=== PATIENT | male | born 1940 | race Caucasian/White ===

== ENCOUNTER → 2016-12-09 | Outpatient (CLI) | payer OTHER ==
[~2016-12-09] MED LIST: ATEN50TA2 PO; ATOR1TAB19 PO; CONRAY-43 43% 50ML VIAL (Q9960) As Ordered ONE; HYDR12.55 PO; LIDOCAINE 1% MDV 20ML VIAL As Ordered ONE; OMEP20CA3 PO; TRIAMCINOLONE ACETONIDE SUSP 40 MG/ML VIAL (J3301) As Ordered ONE; WARF-23 PO
--- NOTE | 2016-12-09 16:55 | REP ---
RIGHT HIP INJECTION: The procedure was performed under the direct supervision of Dr. Bob. The risks and benefits of the procedure were explained to the patient and informed consent was obtained. The right femoral neck was localized using fluoroscopic guidance. The skin was prepped and draped in a sterile fashion. 1% Lidocaine was used as a local anesthetic. Using fluoroscopic guidance a 22-gauge spinal needle was inserted and advanced to the femoral neck. 0.5 mL of Conray-43 was injected to verify placement. 6 mL of a solution containing 5 mL of 1% lidocaine and 1 mL of Kenalog 40 mg was injected. The needle was then removed. The patient tolerated the procedure well and there were no immediate complications. 4 seconds of fluoroscopic time was utilized for this procedure. Reviewed by KATHERINE Cheung 12/10/2016 10:07 AEdited and Signed by [place]oacano Bob MD 12/10/2016 10:41 A
== END ==
LOC: M RADPRO 08:58
PROVIDERS: ATTEND Orthopaedic Surgery
DX: M16.11 Unilateral primary osteoarthritis, right hip (principal)
CPT/HCPCS: 20610; 77002; J3301; Q9960

== ENCOUNTER 2017-03-17 13:01 | Day surgery (SDC) | payer MEDICARE ==
[~2017-03-17] VITALS: Ht 180.3 cm; Wt 111.0 kg
[~2017-03-17 13:01] MED LIST changes: -CONRAY-43 43% 50ML VIAL (Q9960) As Ordered ONE; -LIDOCAINE 1% MDV 20ML VIAL As Ordered ONE; -TRIAMCINOLONE ACETONIDE SUSP 40 MG/ML VIAL (J3301) As Ordered ONE
[2017-03-17] MEDS ORDERED: JANT5TAB PO (13:29)
[2017-03-17] MEDS ORDERED: NS 1,000 ML IV SCH (14:15)
[2017-03-17] MEDS ORDERED: HYDR25TAB PO (14:23)
[2017-03-17] MEDS ORDERED: TYLE500T78 PO (14:39)
[2017-03-17] MEDS ORDERED: LIDOCAINE 2% INJ 100 MG/5 ML SDV (FOR ANES.) As Ordered ONE (16:52)
[2017-03-17] MEDS ORDERED: ONDANSETRON 4MG/2ML VIAL (J2405) As Ordered ONE (16:52)
[2017-03-17] MEDS ORDERED: SUCCINYLCHOLINE 100 MG/5 ML SYRINGE (J0330) As Ordered ONE (16:52)
[2017-03-17] MEDS ORDERED: MIDAZOLAM INJ 2 MG/2 ML VIAL (J2250) As Ordered ONE (16:52)
[2017-03-17] MEDS ORDERED: PROPOFOL 200 MG/20 ML VIAL As Ordered ONE (16:52)
[2017-03-17] MEDS ORDERED: fentaNYL 100 MCG/2 ML INJECTION (J3010) As Ordered ONE (16:52)
[2017-03-17] MEDS ORDERED: dexameTHASONE 4 MG/ML 1ML VIAL (J1100) As Ordered ONE (16:52)
[2017-03-17] MEDS ORDERED: LR 1,000 ML IV SCH (18:00)
[2017-03-17] MEDS ORDERED: fentaNYL 100 MCG/2 ML INJECTION (J3010) IV PRN (18:00)
[2017-03-17] MEDS ORDERED: ONDANSETRON 4MG/2ML VIAL (J2405) IV PRN (18:00)
[2017-03-17 19:30] VITALS: BP 173/86
[2017-03-17 20:00] VITALS: BP 180/88
[2017-03-17 20:45] LABS: BLOOD UREA NITROGEN 19 MG/DL (7-18); CREATININE FOR GFR 1.05 MG/DL (0.70-1.30); GLOMERULAR FILTRATION RATE > 60.0 (>42)
[2017-03-17 21:00] VITALS: BP 173/84; O2SAT 97
[2017-03-17] MEDS ORDERED: ISOVUE-370 76% 100ML VIAL (Q9967) As Ordered ONE (21:46)
[2017-03-17 22:00] VITALS: BP 172/87
[2017-03-17] MEDS: NS 1,000 ML IV SCH (22:26)
--- NOTE | 2017-03-17 22:50 | REPUSA ---
CT of the chest Clinical statement: Chest pain, possible esophageal tear. Technique: Multiple axial CT images were obtained from the thoracic inlet through the upper abdomen a fter a bolus administration of nonionic intravenous contrast. Coronal and sagittal reconstructions we re also obtained. No comparison is available. Findings: The pulmonary arteries are well-opacified with contrast, with no intraluminal filling defec ts to suggest embolism. The thoracic aorta is unremarkable. Thyroid gland is within normal limits. Th ere is no thoracic lymphadenopathy. There are no pericardial or pleural effusions. The lungs are vickie r. Limited imaging of the upper abdomen is unremarkable.. Esophagus appears grossly unremarkable. The re is a small hiatal hernia. There are no suspicious osseous lesions. Impression: 1. No evidence of pulmonary embolism. 2. Patchy atelectasis in the lung bases bilaterally. No other acute infiltrates. 3 Small hiatal hernia. The esophagus otherwise appears unremarkable. If there is further clinical con cern, esophagram or endoscopy could be performed.
[2017-03-17 23:00] VITALS: BP 144/69
[2017-03-17] MEDS ORDERED: KETOROLAC 30 MG/ML VIAL (J1885) IV PRN (23:00)
[2017-03-17] MEDS: PIPERACILLIN/TAZOBACTAM SOD 3.375 GM in D5W MINI-BAG PLUS 50 ML IV SCH (23:16)
[2017-03-18] VITALS: BP 168/74
[2017-03-18 00:15] LABS: BASO % 0.1 % (0.0-1.0); EOS # 0.1 K/mm3 (0.0-0.50); EOS % 0.7 % (0.0-3.0); LARGE UNSTAINED CELL # 0.1 K/mm3 (0.0-0.4); LARGE UNSTAINED CELL % 0.5 % (0.0-4.0); LYMPH # 0.9 K/mm3 (1.5-4.5); LYMPH % 7.4 % (24.0-44.0); MEAN CORPUSCULAR HEMOGLOBIN 29.3 pg (27.0-33.0); MEAN CORPUSCULAR HGB CONC 33.5 g/dl (32.0-36.5); MEAN CORPUSCULAR VOLUME 87.2 fl (80.0-96.0); MONO # 0.2 K/mm3 (0.0-0.8); NEUTROPHILS % 89.4 % (36.0-66.0); PLATELET COUNT, AUTOMATED 301 k/mm3 (150-450); RED CELL DISTRIBUTION WIDTH 14.3 % (11.5-14.5); WHITE BLOOD COUNT 11.2 K/mm3 (4.0-10.0)
[2017-03-18 00:44] LABS: ALBUMIN 3.3 GM/DL (3.2-5.2); ALBUMIN/GLOBULIN RATIO 0.75 (1.00-1.93); ALKALINE PHOSPHATASE 59 U/L (45-117); ALT/SGPT 14 U/L (12-78); ANION GAP 7 MEQ/L (8-16); AST/SGOT 20 U/L (15-37); BLOOD UREA NITROGEN 19 MG/DL (7-18); CALCIUM LEVEL 8.6 MG/DL (8.8-10.2); CARBON DIOXIDE LEVEL 27 MEQ/L (21-32); CHLORIDE LEVEL 104 MEQ/L (98-107); CHOLESTEROL LEVEL 125 MG/DL (< 200); CREATININE FOR GFR 1.03 MG/DL (0.70-1.30); GLOMERULAR FILTRATION RATE > 60.0 (>42); GLUCOSE, FASTING 120 MG/DL (83-110); PHOSPHORUS LEVEL 2.1 MG/DL (2.5-4.9); POTASSIUM SERUM 4.1 MEQ/L (3.5-5.1); SODIUM LEVEL 138 MEQ/L (136-145); TOTAL PROTEIN 7.7 GM/DL (6.4-8.2); TRIGLYCERIDES LEVEL 65 MG/DL (<150)
[2017-03-18 04:00] VITALS: BP 153/73
[2017-03-18] MEDS: PIPERACILLIN/TAZOBACTAM SOD 3.375 GM in D5W MINI-BAG PLUS 50 ML IV SCH ×2 (05:59→11:09)
[2017-03-18 06:38] LABS: BASO % 0.1 % (0.0-1.0); EOS % 0.2 % (0.0-3.0); LARGE UNSTAINED CELL # 0.1 K/mm3 (0.0-0.4); LARGE UNSTAINED CELL % 0.5 % (0.0-4.0); LYMPH # 1.2 K/mm3 (1.5-4.5); LYMPH % 11.3 % (24.0-44.0); MEAN CORPUSCULAR HEMOGLOBIN 29.6 pg (27.0-33.0); MEAN CORPUSCULAR HGB CONC 33.7 g/dl (32.0-36.5); MONO # 0.5 K/mm3 (0.0-0.8); MONO % 4.6 % (0.0-5.0); NEUTROPHILS # 8.7 K/mm3 (1.8-7.7); NEUTROPHILS % 83.3 % (36.0-66.0); PLATELET COUNT, AUTOMATED 274 k/mm3 (150-450); RED CELL DISTRIBUTION WIDTH 14.2 % (11.5-14.5); WHITE BLOOD COUNT 10.4 K/mm3 (4.0-10.0)
--- NOTE | 2017-03-18 08:20 | ROOR ---
Patient Name: Soham Mario Procedure Date: 03/17/2017 3:09 PM Date of : 1940 Age: 76 Room: Main OR Gender: Male Note Status: Finalized Procedure: Upper GI endoscopy + Snare Removal of Foreign Body. Indications: Foreign body in the esophagus Providers: Roney Braga MD Referring MD: Cristino Márquez MD Requesting Provider: Medicines: General Anesthesia Complications: No immediate complications. Procedure: Pre-Anesthesia Assessment: - The heart rate, respiratory rate, oxygen saturations, blood pressure, adequacy of pulmonary ventilation, and response to care were monitored throughout the procedure. The Endoscope was introduced through the mouth, and advanced to the second part of duodenum. The upper GI endoscopy was accomplished without difficulty. The patient tolerated the procedure well. Findings: Food was found in the entire esophagus. Removal was accomplished with a snare. A non-bleeding mucosal tear of uncertain etiology was found in the lower third of the esophagus. No other significant abnormalities were identified in a careful examination of the stomach. The exam of the duodenum was otherwise normal. Impression: - Food was found in the esophagus. Removal was successful. - Mucosal tear in the lower third of the esophagus. - The examination was otherwise normal. Recommendation: - Patient has a contact number available for emergencies. The signs and symptoms of potential delayed complications were discussed with the patient. Return to normal activities tomorrow. Written discharge instructions were provided to the patient. - High fiber diet. - Observe patient in same day observation unit. - The findings and recommendations were discussed with the patient's family. Roney Braga MD Roney Braga MD 03/18/2017 8:20:22 AM This report has been signed electronically. Number of Addenda: 0 Note Initiated On: 03/17/2017 3:09 PM Estimated Blood Loss: Estimated blood loss: none.
--- NOTE | 2017-03-18 09:45 | CR ---
DATE OF CONSULTATION: The patient is seen at the request of Dr. Roney Braga for possible esophageal tear and rupture. 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 It got stuck in his distal esophagus where he was not able to dislodge it. All night he was retching. He tried to clear it with water, which came right back up. He tried some ice cream and that did not work either. He complained of pain from his retching in his upper abdomen and on both sides of his ribs. Since clearing the obstruction, he has not had any pain. He has not had any fevers, chills or sweats. He has not complained of shortness of breath. He has had this problem for a very long period of time and knows that both chicken and beef steak does not go down well. He has even had esophageal dilations in the past. He usually avoids those foods. He does not have any dysphagia with swallowing liquids or ground beef. He underwent a CT scan of his chest, which I will discuss below, which showed the possibility of some air within the esophageal wall. PAST MEDICAL HISTORY: Coronary artery disease. Chronic back problems for which he has been on disability since the mid . Hypertension. He is on Coumadin for an unknown reason. PAST SURGICAL HISTORY: The above coronary artery bypass procedure. Appendectomy in the remote past. Shoulder surgery. MEDICATIONS AT HOME: - atenolol 50 mg daily - atorvastatin 10 mg nightly - omeprazole 20 mg daily - warfarin 5 mg daily - hydrochlorothiazide 25 mg daily - Tylenol as needed pain. ALLERGIES: None. TRAVEL HISTORY: He has been to [place] once and took a cruise to [place]. No travel history to the [facility] or to the south portion of the [facility]. EXPOSURES: No dogs, cats or birds at home at the present time. No exposure to tuberculosis. 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 HABITS: Stopped smoking 35 years ago. He smoked less than a pack a day. He only has occasional alcohol intake. No illicit drugs. FAMILY HISTORY: Mother probably of lung cancer and his father of a myocardial infarction in his late 40s. REVIEW OF SYSTEMS: CONSTITUTIONAL: She history of present illness. Without fever, chills, sweats or night sweats, and particularly none in the last 48 hours. EYES: Wears glasses without diplopia. Without transient monocular blindness, without apparent jaundice. NOSE: Without epistaxis. MOUTH: Has full uppers and he has only a few remaining teeth in the lower jaw. RESPIRATORY: See history of present illness. Without prior shortness of breath, without cough or sputum production. Without wheezing. CARDIAC: Without orthopnea, or paroxysmal nocturnal dyspnea. He does not have leg edema but does have ankle edema secondary to orthopedic problems for which he wears a brace, recently acquired. Without intermittent claudication or prior myocardial infarctions. He does have prior coronary artery disease status post triple coronary artery bypass graft procedure. GI: See history of present illness. Without diarrhea or constipation. While he has been retching, he has not actually felt nauseous and he has not actually vomited. Without prior abdominal pain but with the above history of most likely esophageal stricture. : Without dysuria, hematuria. He has not had renal stones. NEUROLOGIC: Without paralysis or seizures. ENDOCRINE: Without diabetes and without thyroid disease. LYMPHATICS: Without lumps or bumps of the neck, axilla or groin. PSYCHIATRIC: Without pathologic psychoses, depression or anxieties. INVESTIGATIONS: His white count yesterday evening was 11.2 and is 10.4 today. Hemoglobin and hematocrit are 13.4 and 39.8 with a platelet count of 274 and a differential which shows 83% neutrophils, 11% lymphocytes, 4% monocytes. There are no immature forms or toxic granulations. Electrolytes are normal with a BUN and creatinine of 19 and 1.03. Calcium 8.6 with an AST and ALT of 20 and 14 respectively and an albumin of 3.3. Alkaline phosphatase is 59. He had a chest CT done late last night and showed a suspicion of air outside the esophageal lumen within the wall of the esophagus. There is some thickening around the distal esophagus just as it enters the stomach at the gastroesophageal junction. There is no pleural effusion. He has some atelectasis and some scattered fibrotic changes in the lung. There is no pleural effusion. There is no mediastinal lymphadenopathy and I see no rib fractures. He has stood the test of time over the last few hours and has not developed any pain. He is breathing well and there is neither any mediastinal pain or chest pain consistent with an inflammatory pleural effusion. I did suggest that we obtain a barium swallow today with barium and not with Gastrografin to get the most sensitive reading. I think that he probably does have a small tear in the esophageal mucosa, which will heal spontaneously. Until we get the esophagram, he will remain nothing by mouth. If there is no gross perforation, I recommend that he stays on a soft nearly pureed diet for the next few days. He certainly does not need to be brought to the operating room at this point in time.
[2017-03-18] MEDS: NS 1,000 ML IV SCH (11:09)
[2017-03-18] MEDS ORDERED: PANTOPRAZOLE 40MG INJ (PROTONIX) (C9113) IV SCH (12:00)
[2017-03-18] MEDS ORDERED: E-Z-PAQUE 96% w/w SUSP 176GM BTL As Ordered ONE ×3 (12:59→13:11)
[2017-03-18] MEDS ORDERED: GASTROGRAFIN SOLUTION 30ML (Q9963) As Ordered ONE ×2 (12:59→13:03)
[2017-03-18] MEDS ORDERED: E-Z-GAS II EFFERVESCENT PACKET (SODIUM BICARB./CITRIC ACID/SIMETHICONE) As Ordered ONE (12:59)
[2017-03-18] MEDS ORDERED: OMEP40CA2 PO (15:06)
--- NOTE | 2017-03-18 15:06 | CR ---
DATE OF CONSULTATION: 03/18/2017 The patient was admitted to short stay on 03/17/2017. This is a 76-year-old white male who presented to [facility] as a transfer form [place] for an esophageal food impaction. The patient has multiple medical problems including chronic reflux, hypertension, and hypercholesterolemia, and has had coronary artery bypass graft in 2002 and had back surgery in 2002. The patient presented after 24 hours of eating a large amount of steak the night before and had multiple episodes of retching the night before. He has no fevers, night sweats or shaking chills. He is unable to swallow his own secretions. The patient was treated with glucagon in [place]. He had a chest x-ray and were apparently normal. His was transferred down here for endoscopic intervention for the esophageal food impaction. PAST MEDICAL HISTORY: 1. Reflux. 2. Coronary bypass graft in 2002. 3. Hypertension. 4. Hypercholesterolemia. MEDICATIONS: Include: - omeprazole 20 mg a day - warfarin 5 mg a day - atenolol 50 mg a day - hydrochlorothiazide 50 mg a day - atorvastatin 10 mg a day ALLERGIES: No known declared allergies. FAMILY HISTORY: Father and mother are noncontributory to the above problem. SOCIAL HISTORY: Cigarettes. The patient is a former smoker. Alcohol occasionally. REVIEW OF SYSTEMS: Noncontributory to the above problem. PHYSICAL EXAMINATION: Well-developed, well-nourished white male in some distress, unable swallow his own secretions. Chest is clear to auscultation and percussion. Cardiovascular exam regular rhythm. No murmurs or gallops. Normal physiological split S1 and S2. Abdomen soft, nontender. No masses. Negative rebound. No hepatosplenomegaly. Bowel sounds positive. Extremities no cyanosis, clubbing or edema. ANALYSIS: Esophageal food impaction. At the present time the patient has been put on observation status. We were able to remove the large amount of meat using a , however, upon observation of the distal esophagus, there appeared to be a mucosal tear. We were uncomfortable sending the patient home. We will need to be sure that the patient did not have a complete torn through perforation and no free air in the chest. We ordered a CT of the chest and the CT of the chest did not show any evidence of any free air. Dr. Lopez reviewed the films in the wall of the distal esophagus. The patient was started on Zosyn IV as a precaution IV every 6 hours and will be observed overnight. The patient will have an esophagram today which shows evidence for a probable mucosal tear but no extravasation of contents. Plan will be to send the patient home either today or in the morning, soft diet, with Dr. Lopez for further evaluation and/or treatment at this point.
--- NOTE | 2017-03-19 07:29 | REP ---
ESOPHAGRAM: The procedure was performed under the direct supervision of Dr. Bauer. The images were reviewed with Dr. Bauer. A single view PA chest x-ray is submitted as a youth nutritional monitor film. The patient is status post median sternotomy. There is mild cardiomegaly. There is no active disease. Liquid barium was given in the erect and prone oblique positions. The oral and pharyngeal stages of deglutition are unremarkable. During esophageal transport, there are tertiary waves demonstrated. There is a hiatal hernia present. Gastroesophageal reflux is not demonstrated on this examination. There is a barium collection in the distal esophagus extending into the mucosa which is compatible with the endoscopic findings of a mucosal tear. There is no extravasation identified. IMPRESSION: 1. There is a barium collection in the distal esophagus extending into the mucosa which is compatible with the endoscopic findings of a mucosal tear. There is no evidence of extravasation. 2. There are tertiary waves identified. 3. There is a hiatal hernia present. 2 minutes and 6 seconds of fluoroscopy time was utilized for this procedure. Reviewed by KATHERINE Cheung 03/21/2017 07:03 PEdited and Signed by Jimbo Bauer MD 03/22/2017 03:56 P
== END 2017-03-18 15:25 | disposition home or self-care (01) ==
LOC: M ED 13:51 → M SDC 15:28 → M MS5PR 18:40 → M SDC 03-18 15:25
PROVIDERS: ATTEND Internal Medicine Gastroenterology
DX: T18.128A Food in esophagus causing other injury, initial encounter (principal); S27.818A Other injury of esophagus (thoracic part), initial encounter; I10 Essential (primary) hypertension; E78.5 Hyperlipidemia, unspecified; I25.10 Atherosclerotic heart disease of native coronary artery without angina pectoris; J44.9 Chronic obstructive pulmonary disease, unspecified; K21.9 Gastro-esophageal reflux disease without esophagitis; Z79.899 Other long term (current) drug therapy; Z79.01 Long term (current) use of anticoagulants; Z87.891 Personal history of nicotine dependence
CPT/HCPCS: 36415; 43247; 71260; 74220; 80053; 82465; 82550; 82565; 83615; 84100; 84478; 84520; 85025; 88300; 96374; 96375; 99284; C9113; J0330; J1100; J1885; J2250; J2405; J2543; J3010; Q9963; Q9967

== ENCOUNTER 2017-11-11 05:32 | Inpatient (IN) | payer MEDICARE ==
[2017-11-11] MEDS ORDERED: dexameTHASONE 10 MG/1 ML VIAL PRES.FREE (J1100) (05:33)
[2017-11-11] MEDS ORDERED: ROPIvacaine 0.5% 30 ML INJECTION (J2795 PER 1MG) (05:33)
[2017-11-11] MEDS ORDERED: LIDOCAINE 1% MDV 20ML VIAL (05:33)
[2017-11-11] MEDS ORDERED: LIDOCAINE 1% MDV 20ML VIAL SQ (05:45)
[2017-11-11] MEDS: LR 1,000 ML IV ×4 (05:45→22:45)
[2017-11-11 06:15] LABS: INR 1.16
[2017-11-11] MEDS ORDERED: fentaNYL 100 MCG/2 ML INJECTION (J3010) As Ordered ×2 (07:15→07:21)
[2017-11-11] MEDS ORDERED: MIDAZOLAM INJ 2 MG/2 ML VIAL (J2250) As Ordered ×2 (07:15→07:21)
[2017-11-11] MEDS ORDERED: PROPOFOL 200 MG/20 ML VIAL As Ordered (07:21)
[2017-11-11] MEDS ORDERED: LIDOCAINE 2% INJ 100 MG/5 ML SDV (FOR ANES.) As Ordered (07:21)
[2017-11-11] MEDS ORDERED: ROCURONIUM BROMIDE 50 MG/5 ML VIAL As Ordered (07:21)
[2017-11-11] MEDS: MIDAZOLAM INJ 2 MG/2 ML VIAL (J2250) IV (07:28)
[2017-11-11] MEDS: fentaNYL 100 MCG/2 ML INJECTION (J3010) IV (07:28)
[2017-11-11] MEDS ORDERED: PHENYLephrine HCL 500 MCG/5 ML (100MCG/ML) SYRINGE (J2370) As Ordered (08:10)
[2017-11-11] MEDS ORDERED: ePHEDrine SULFATE 25 MG/5 ML(5MG/ML) SYRINGE As Ordered ×2 (08:10→08:32)
[2017-11-11] MEDS ORDERED: dexameTHASONE 4 MG/ML 1ML VIAL (J1100) As Ordered (08:27)
[2017-11-11] MEDS ORDERED: METOCLOPRAMIDE INJ 10MG/2ML VIAL (J2765) As Ordered (08:27)
[2017-11-11] MEDS: EPINEPHrine 1MG/ML INJ 30ML MD-VIAL As Ordered (08:52)
[2017-11-11] MEDS ORDERED: SEVOFLURANE INHAL SOLN 250 ML BTL As Ordered (09:19)
[2017-11-11] MEDS ORDERED: GLYCOPYRROLATE INJ 0.2 MG/ML 2 ML VIAL As Ordered (09:24)
[2017-11-11] MEDS ORDERED: NEOSTIGMINE 10 MG/10 ML VIAL (J2710) As Ordered (09:24)
[2017-11-11] MEDS ORDERED: NORCO, ANEXSIA 5/325MG TABLET (HYDROcodone/ACETAMINOPHEN) PO (10:15)
[2017-11-11] MEDS ORDERED: MORPHINE 4 MG/ML 1ML SYRINGE IV (10:15)
[2017-11-11] MEDS ORDERED: fentaNYL 100 MCG/2 ML INJECTION (J3010) IV (10:30)
[2017-11-11] MEDS ORDERED: PERCOCET 5MG/325MG TAB PO (10:30)
[2017-11-11] MEDS ORDERED: ONDANSETRON 4MG/2ML VIAL (J2405) IV (10:30)
[2017-11-11] MEDS ORDERED: HYDROmorphone HCL 1 MG/ML SYRINGE (J1170) IV (10:30)
[2017-11-11] MEDS: ACETAMINOPHEN TAB 650MG DOSE (2X325MG) PO ×2 (16:39→23:44)
[2017-11-11] MEDS: ATORVASTATIN 10 MG TAB PO (20:08)
[2017-11-11] MEDS: NORCO, ANEXSIA 5/325MG TABLET (HYDROcodone/ACETAMINOPHEN) PO (21:12)
[2017-11-12] MEDS: NORCO, ANEXSIA 5/325MG TABLET (HYDROcodone/ACETAMINOPHEN) PO ×5 (01:19→20:00)
[2017-11-12 06:06] LABS: MEAN CORPUSCULAR HEMOGLOBIN 29.1 pg (27.0-33.0); MEAN CORPUSCULAR HGB CONC 33.7 g/dl (32.0-36.5); MEAN CORPUSCULAR VOLUME 86.3 fl (80.0-96.0); PLATELET COUNT, AUTOMATED 275 10^3/uL (150-450); RED CELL DISTRIBUTION WIDTH 14.9 % (11.5-14.5); WHITE BLOOD COUNT 15.7 10^3/uL (4.0-10.0)
[2017-11-12 06:37] LABS: ANION GAP 9 MEQ/L (8-16); BLOOD UREA NITROGEN 19 MG/DL (7-18); CALCIUM LEVEL 8.3 MG/DL (8.8-10.2); CARBON DIOXIDE LEVEL 27 MEQ/L (21-32); CHLORIDE LEVEL 105 MEQ/L (98-107); CREATININE FOR GFR 0.89 MG/DL (0.70-1.30); GLOMERULAR FILTRATION RATE > 60.0 (>42); GLUCOSE, FASTING 116 MG/DL (83-110); MAGNESIUM LEVEL 1.9 MG/DL (1.8-2.4); POTASSIUM SERUM 3.6 MEQ/L (3.5-5.1); SODIUM LEVEL 141 MEQ/L (136-145)
[2017-11-12] MEDS: OMEPRAZOLE 20 MG CAP PO (10:35)
[2017-11-12] MEDS: hydroCHLOROthiazide 25 MG TAB PO (10:35)
[2017-11-12] MEDS: ATENOLOL 50 MG TAB PO (10:36)
[2017-11-12] MEDS: LR 1,000 ML IV (11:15)
[2017-11-12] MEDS: WARFARIN SOD 5 MG TAB PO (17:00)
[2017-11-12] MEDS: ATORVASTATIN 10 MG TAB PO (20:00)
== END 2017-11-12 22:00 | disposition short-term general hospital (02) | DRG 510 ==
LOC: M SDC 05:32 → M MS5PR 10:38
PROC: 0LQ14ZZ Repair Right Shoulder Tendon, Percutaneous Endoscopic Approach (ICD-10-PCS; principal; 2017-11-11 07:30)
PROC: 0RNJ4ZZ Release Right Shoulder Joint, Percutaneous Endoscopic Approach (ICD-10-PCS; 2017-11-11 07:30)
DX: M75.101 Unspecified rotator cuff tear or rupture of right shoulder, not specified as traumatic (principal); I21.4 Non-ST elevation (NSTEMI) myocardial infarction; M75.81 Other shoulder lesions, right shoulder; M75.21 Bicipital tendinitis, right shoulder; M19.011 Primary osteoarthritis, right shoulder; I10 Essential (primary) hypertension; E78.5 Hyperlipidemia, unspecified; K21.9 Gastro-esophageal reflux disease without esophagitis; Z95.5 Presence of coronary angioplasty implant and graft; Z87.891 Personal history of nicotine dependence; Z79.01 Long term (current) use of anticoagulants; Z79.899 Other long term (current) drug therapy

== ENCOUNTER 2018-12-01 08:13 | Inpatient (IN) | payer MEDICARE ==
[~2018-12-01] VITALS: Ht 180.3 cm; Wt 113.3 kg
[~2018-12-01 08:13] MED LIST changes: +HYDR25TAB PO; +JANT5TAB PO; +OMEP40CA2 PO; +TYLE500T78 PO
[2018-12-01 10:00] VITALS: BP 147/97
[2018-12-01] MEDS ORDERED: NS 1,000 ML IV SCH (10:14)
[2018-12-01] MEDS ORDERED: MORPHINE 4 MG/ML 1ML VIAL/SYRINGE (J2270) IV PRN (10:15)
[2018-12-01] MEDS ORDERED: ONDANSETRON 4MG/2ML VIAL (J2405) IV PRN (10:15)
[2018-12-01] MEDS: PANTOPRAZOLE 40MG INJ (PROTONIX) (C9113) IV SCH ×2 (10:44→23:01)
[2018-12-01 10:59] LABS: INR 1.77; PROTHROMBIN TIME 20.9 SECONDS (12.1-14.4)
[2018-12-01 11:07] LABS: ALBUMIN 3.4 GM/DL (3.2-5.2); ALT/SGPT 21 U/L (12-78); BILIRUBIN,TOTAL 0.7 MG/DL (0.2-1.0); BLOOD UREA NITROGEN 19 MG/DL (7-18); CALCIUM LEVEL 8.2 MG/DL (8.8-10.2); CARBON DIOXIDE LEVEL 22 MEQ/L (21-32); CHLORIDE LEVEL 105 MEQ/L (98-107); CREATININE FOR GFR 1.06 MG/DL (0.70-1.30); GLOMERULAR FILTRATION RATE > 60.0 (>42); GLUCOSE, FASTING 133 MG/DL (70-100); MAGNESIUM LEVEL 1.8 MG/DL (1.8-2.4); POTASSIUM SERUM 3.6 MEQ/L (3.5-5.1); SODIUM LEVEL 140 MEQ/L (136-145); TOTAL PROTEIN 7.2 GM/DL (6.4-8.2)
[2018-12-01 12:00] VITALS: BP 169/81
[2018-12-01] MEDS ORDERED: OMEP20CA3 PO (12:10)
[2018-12-01] MEDS ORDERED: POTA1TAB21 PO (12:10)
[2018-12-01] MEDS ORDERED: ATOR40TA75 PO (12:10)
[2018-12-01] MEDS ORDERED: ASPI1TAB PO ×2 (12:10→12:11)
[2018-12-01 16:00] VITALS: BP 165/94
[2018-12-01 20:00] VITALS: BP 174/95
[2018-12-01 23:03] VITALS: BP 146/72
--- NOTE | 2018-12-02 00:38 | HPEPDOC ---
General Date of Admission Dec 01, 2018 at 10:14 Primary Care Physician: A Other Providers PCP Dr Cristino Márquez Attending Physician: JOHN GARCIA MD Chief Complaint The patient is a 78-year-old male admitted with a reason for visit of Rectal Bleeeding. Source: Patient, Old records, Other (Other hospital records. 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 The patient was in his usual state of health on 11/30/18 night . He was sitting watching TV when he suddenly felt an urge for a bowel movement went to the bathroom and had stool mixed with bright red blood. He had 4 more episodes of rectal bleeding at home then went to the [facility] ED in the morning of 12/01/18. There he continued to have several more episodes so was transferred here for further evaluation. Pateint was give one dose of vit K in the other hospital and Dr Natacha phipps Gi was also contacted from the other hospital. Patient was admitted for Lower GI bleeding. Home Medications Scheduled Aspirin (Aspirin 81) 81 Mg Tab, 81 MG PO DAILY, (Reported) Atenolol (Atenolol) 50 Mg Tab, 50 MG PO DAILY, (Reported) Atorvastatin Calcium (Atorvastatin Calcium) 40 Mg Tab, 40 MG PO QHS, (Reported) Hydrochlorothiazide (Hydrochlorothiazide) 25 Mg Tab, 25 MG PO DAILY, (Reported) Omeprazole (Omeprazole) 20 Mg Cap, 20 MG PO DAILY, (Reported) Potassium Chloride (Potassium Chloride ER) 8 Meq Tab, 8 MEQ PO DAILY, (Reported) Warfarin Sod (Warfarin Sodium) 5 Mg Tab, 5 MG PO DAILY, (Reported) Scheduled PRN Acetaminophen (Tylenol Extra Strength) 500 Mg Tab, 1,000 MG PO QHS PRN for PAIN / FEVER, (Reported) Allergies Coded Allergies: No Known Allergies (Verified , 11/11/17) Past Medical History Medical History 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, obesity, hypertension, hyperlipidemia, Hiatal hernia, h/o Esophageal tear and food impaction, GERD, on coumadin for possibly A fib Surgical History CABG 2002, Cardiac stent 2018, bilateral shoulder surgery, appendectomy, Low back surgery 2002, left carpal tunnel release Family History mother hypertension father heart disease Social History * Smoker: former Smoker Alcohol: rarely Drugs: denies Review of Systems Constitutional: Denies: Chills, Fever, Malaise, Night Sweats, Weakness, Fatigue, Weight Loss, Lethargy, Other Pulmonary: Reports: Dyspnea (chronic on exertion for 2 to 3 years) Cardiovascular: Denies: Chest Pain, Palpitations, Orthopnea, Paroxysmal Noc. Dyspnea Gastrointestinal: Reports: Hematochezia; Denies: Nausea, Vomiting, Abdominal Pain, Diarrhea, Constipation Hematologic: Denies: Bruising, Bleeding Excessively, Petecchia, Purpura, Enlarged Lymph Nodes, Other Hematologic Musculoskeletal: Reports: Back Pain, Joint Pain, Other Symptoms (hip pain) Physical Examination General Exam: Positive: Alert, Cooperative, No Acute Distress Eye Exam: Positive: PERRLA, Conjunctiva & lids normal, EOMI; Negative: Sclera icteric ENT Exam: Positive: Atraumatic, Mucous membr. moist/pink, Pharynx Normal Neck Exam: Positive: Supple; Negative: JVD, thyromegaly Chest Exam: Positive: Clear to auscultation, Normal air movement Heart Exam: Positive: Rate Normal, Regular Rhythm, Normal S1, Normal S2; Negative: Murmurs, Rubs Telemetry: Positive: No significant arrhythmia Abdomen Exam: Positive: BS Hyperactive, Soft; Negative: Tenderness Extremity Exam: Positive: Edema (trace) Skin Exam: Positive: Nl turgor and temperature; Negative: Breakdown, Lesion Vital Signs Vital Signs Date Time Temp Pulse Resp B/P (MAP) Pulse Ox O2 Delivery O2 Flow Rate FiO2 12/01/18 23:03 98.5 75 20 146/72 (96) 93 Room Air Laboratory Data Labs 24H Laboratory Tests 2 12/01/18 10:30: Prothrombin Time 20.9H, Prothromb Time International Ratio 1.77, Anion Gap 13, Glomerular Filtration Rate > 60.0, Blood Urea Nitrogen 19H, Creatinine 1.06, Sodium Level 140, Potassium Level 3.6, Chloride Level 105, Carbon Dioxide Level 22, Calcium Level 8.2L, Aspartate Amino Transf (AST/SGOT) 17, Alanine Aminotransferase (ALT/SGPT) 21, Alkaline Phosphatase 71, Total Bilirubin 0.7, Total Protein 7.2, Albumin 3.4, Magnesium Level 1.8, Albumin/Globulin Ratio 0.89L CBC/BMP Laboratory Tests 12/01/18 10:30 Calcium Level 8.2 L, Aspartate Amino Transf (AST/SGOT) 17, Alanine Aminotransferase (ALT/SGPT) 21, Alkaline Phosphatase 71, Total Bilirubin 0.7, Total Protein 7.2, Albumin 3.4 Assessment/Plan This is a 78 year old male with past medical history of 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 The patient was in his usual state of health on 11/30/18 night . He was sitting watching TV when he suddenly felt an urge for a bowel movement went to the bathroom and had stool mixed with bright red blood. He had 4 more episodes of rectal bleeding at home then went to the [facility] ED in the morning of 12/01/18. There he continued to have several more episodes so was transferred here for further evaluation. Pateint was give one dose of vit K in the other hospital and Dr Manzano from Gi was also contacted from the other hospital. Patient was admitted for Lower GI bleeding. Lower GI blooding Painless bleeding possibly diverticular or AVMs HH from [facility] at 5 am 13.7 and at 8 am 13.1 will monitor HH here Hold ASA and coumadin Tranfuse prn. Pantoprazole will keep on clear liquids. May need colonoscopy Dr Manzano consulted. CAD/CABG/Stent no issues at present Continue atenolol and statin , will hold ASA and coumadin Hypertension continue atenolol hold HCTZ Hyperlipidemia continue statin Hiatal hernia/GERD on PPI Possible Paroxysmal A fib as patient on coumadin. will hold INR not supratherapeutic. DVT prophylaxis ordered. Plan / VTE VTE Prophylaxis Ordered?: Yes JOHN GARCIA MD Dec 02, 2018 00:37
[2018-12-02 00:48] LABS: BASO # 0.1 10^3/uL (0.0-0.2); BASO % 0.7 % (0.0-1.0); EOS # 0.1 10^3/uL (0.0-0.50); HEMATOCRIT 30.2 % (42.0-52.0); HEMOGLOBIN 9.9 g/dl (13.5-17.5); LYMPH # 2.5 10^3/uL (1.5-4.5); LYMPH % 35.4 % (24.0-44.0); MEAN CORPUSCULAR HEMOGLOBIN 28.7 pg (27.0-33.0); MEAN CORPUSCULAR HGB CONC 32.8 g/dl (32.0-36.5); MEAN CORPUSCULAR VOLUME 87.5 fl (80.0-96.0); MONO # 0.7 10^3/uL (0.0-0.8); NEUTROPHILS # 3.7 10^3/uL (1.8-7.7); NEUTROPHILS % 52.8 % (36.0-66.0); PLATELET COUNT, AUTOMATED 221 10^3/uL (150-450); RED BLOOD COUNT 3.45 10^6/uL (4.30-6.10)
[2018-12-02 04:00] VITALS: BP 140/63
[2018-12-02 05:56] LABS: BASO # 0.1 10^3/uL (0.0-0.2); BASO % 0.8 % (0.0-1.0); EOS # 0.1 10^3/uL (0.0-0.50); EOS % 1.5 % (0.0-3.0); HEMOGLOBIN 9.8 g/dl (13.5-17.5); LYMPH # 2.2 10^3/uL (1.5-4.5); LYMPH % 34.2 % (24.0-44.0); MEAN CORPUSCULAR HEMOGLOBIN 28.7 pg (27.0-33.0); MEAN CORPUSCULAR HGB CONC 32.7 g/dl (32.0-36.5); MEAN CORPUSCULAR VOLUME 87.7 fl (80.0-96.0); MONO # 0.7 10^3/uL (0.0-0.8); MONO % 10.7 % (0.0-5.0); NEUTROPHILS # 3.4 10^3/uL (1.8-7.7); NEUTROPHILS % 52.5 % (36.0-66.0); PLATELET COUNT, AUTOMATED 208 10^3/uL (150-450); RED BLOOD COUNT 3.42 10^6/uL (4.30-6.10); WHITE BLOOD COUNT 6.5 10^3/uL (4.0-10.0)
[2018-12-02 06:09] LABS: INR 1.37; PROTHROMBIN TIME 17.1 SECONDS (12.1-14.4)
[2018-12-02 06:24] LABS: BLOOD UREA NITROGEN 19 MG/DL (7-18); CARBON DIOXIDE LEVEL 27 MEQ/L (21-32); CHLORIDE LEVEL 106 MEQ/L (98-107); CREATININE FOR GFR 0.94 MG/DL (0.70-1.30); GLOMERULAR FILTRATION RATE > 60.0 (>42); GLUCOSE, FASTING 95 MG/DL (70-100); POTASSIUM SERUM 3.3 MEQ/L (3.5-5.1); SODIUM LEVEL 141 MEQ/L (136-145)
[2018-12-02 08:00] VITALS: BP 163/70
[2018-12-02] MEDS ORDERED: POTASSIUM CHLORIDE 10 MEQ SR TABLET PO ONE (08:00)
[2018-12-02] MEDS: ATENOLOL 50 MG TAB PO SCH (08:22)
[2018-12-02 11:58] LABS: HEMATOCRIT 30.4 % (42.0-52.0); HEMOGLOBIN 10.2 g/dl (13.5-17.5)
[2018-12-02] MEDS: PANTOPRAZOLE 40MG INJ (PROTONIX) (C9113) IV SCH ×2 (12:13→23:01)
[2018-12-02 16:00] VITALS: BP 156/78
--- NOTE | 2018-12-02 17:42 | CR.PDOC ---
General Date of Consultation: Dec 02, 2018 Referring Provider: MERCEDEZ DELACRUZ MD Attending Physician: RK MALDONADO MD Consultation Primary physician/ hospitalist: Dr. Mercedez Delacruz Reason for consult: rectal bleeding. HPI: 78 year old male patient with HTN, HLD, CAD ( prior CABG in 2002, last Stent in Nov 2017), obesity ( BMI 32), Hiatal hernia, h/o Esophageal tear in past, GERD, on coumadin for possibly A fib ( follows with Dr. Tirado), was transferred from [facility] for rectal bleeding. The patient reported that he started noticing acute onset rectal bleeding, which started around 5 or 6 PM on 11/30/18, when ate pizza for dinner. Patient removed some urge for bowel movement and then had multiple episodes of rectal bleeding at home which persisted till next day morning when he started feeling weak, so called his daughter and went to ER in [facility]. Patient was given vitamin K and was transferred to [facility]. Patient reports he no longer notices any more bloody bowel movements on floor. Patient's coumadin was stopped. Patient denies any similar rectal bleeding in past and never had Colonoscopy in past. Pertinent negative GI symptoms: Patient denies nausea, vomiting, abdominal pain, loss of appetite, early satiety or unintentional weight loss. No history of hematemesis, melena. Review of Systems: GI: as stated above CVS: No chest pain, No palpitations, No leg swelling. RS: No Shortness of breath, No Wheezing, no cough [employer]: No dizziness, No motor weakness, No sensory problems Hematology: No bruising, No gum bleeding, Musculoskeletal: No joint pain, ambulating well. Skin: No rash : No hematuria, No burning sensation of the urine ENT: No ear discharge/ pain, No dysphagia. Eyes: No photophobia. Home medications: reviewed. Antithrombotic agents - ASA 81 mg and Coumadin. Medical h/o: As above. Surgical h/o: None on abdomen. Social h/o: Alcohol- Denies , tobacco- Denies ( quit around 40 years ago). , IVDA/ drugs- Denies . Family h/o of GI cancers - None Prior Endoscopies: --- EGD - Previoous EGD by Dr. Braga for food impaction, noted esophagitis. --- Colonoscopy - None Prior GI evaluation: Previously seen Dr. Braga. Exam: Vitals: reviewed General: Alert and oriented x 3, not in distress HEENT: NO pallor, no icterus. Normal oropharynx, NO cervical lymph nodes. Chest: symmetric with bilateral clear air entry, CVS: S1, S2 heard, normal, no murmurs . Abdomen: non-distended, no surgical scars, soft, non-tender, no palpable masses, normal bowel sounds heard. Rectal exam: Patient refused / Deferred at this time in view of scheduled colonoscopy. Extremities: no pedal edema, pulses palpable. [employer]: no focal motor or sensory deficits. Moves all extremities Skin: no rash. Labs: reviewed. Imaging tests: reviewed Impression: - Rectal bleeding -- acute onset, painless bloody bowel movements in patient on anticoagulant -- DDx- Diverticular bleeding vs AVM vs Ischemic colitis (due to h/o Atrial fibrillation) vs Colon polyps. Recommendations: - Patient educated about the test results, possible differential diagnoses and All questions answered. - Monitor H/H and transfuse if needed to keep hemoglobin around 9-10 mg/dL. - Avoid NSAIDs. - Anti-coagulant management as per primary team. - Patient is educated about the Colonoscopy procedure and its indications, risks (bleeding, perforation, infection, hypotension, respiratory depression, allergy, need for endotracheal intubation, surgery, colostomy, cardiac arrest, even ), benefits, limitations (e.g., missing a lesion), and all other alternatives (including no intervention) were explained to the patient. Patient verbalized understanding and wanted to do the procedure on tuesday. Verbal consent obtained from patient. - Please give liqui diet. - Golytely 4 liters to start on 11/22/2018 and complete by 6 AM on 12/03/2018. - Bisacodyl 20 mg at 8 PM on 12/02/2018. Plan of care discussed with patient and primary team. Patient verbalized understanding and agreed with the plan. Allergies Coded Allergies: No Known Allergies (Verified , 11/11/17) Home Medications Scheduled Aspirin (Aspirin 81) 81 Mg Tab, 81 MG PO DAILY, (Reported) Atenolol (Atenolol) 50 Mg Tab, 50 MG PO DAILY, (Reported) Atorvastatin Calcium (Atorvastatin Calcium) 40 Mg Tab, 40 MG PO QHS, (Reported) Hydrochlorothiazide (Hydrochlorothiazide) 25 Mg Tab, 25 MG PO DAILY, (Reported) Omeprazole (Omeprazole) 20 Mg Cap, 20 MG PO DAILY, (Reported) Potassium Chloride (Potassium Chloride ER) 8 Meq Tab, 8 MEQ PO DAILY, (Reported) Warfarin Sod (Warfarin Sodium) 5 Mg Tab, 5 MG PO DAILY, (Reported) Scheduled PRN Acetaminophen (Tylenol Extra Strength) 500 Mg Tab, 1,000 MG PO QHS PRN for PAIN / FEVER, (Reported) RK MALDONADO MD Dec 02, 2018 17:41
[2018-12-02] MEDS ORDERED: GOLYTELY SOLN 4000 ML BTL PO ONE (18:00)
--- NOTE | 2018-12-02 18:02 | IPNPDOC ---
Subjective Date Seen The patient was seen on 12/02/18. Subjective Chief Complaint/HPI painless rectal bleeding Events since last encounter No futher bloody stools since yesterday morning. No abdominal pain , nausea or vomiting or diarrhea. No fever or chills. Objective Physical Examination General Exam: Positive: Alert, Cooperative, No Acute Distress Eye Exam: Positive: PERRLA, Conjunctiva & lids normal, EOMI; Negative: Sclera icteric ENT Exam: Positive: Atraumatic, Mucous membr. moist/pink, Pharynx Normal Neck Exam: Positive: Supple; Negative: JVD, thyromegaly Chest Exam: Positive: Clear to auscultation, Normal air movement Heart Exam: Positive: Rate Normal, Regular Rhythm, Normal S1, Normal S2; Negative: Murmurs, Rubs Telemetry: Positive: No significant arrhythmia Abdomen Exam: Positive: BS Hyperactive, Soft; Negative: Tenderness Extremity Exam: Positive: Edema (trace) Skin Exam: Positive: Nl turgor and temperature; Negative: Breakdown, Lesion Assessment /Plan Assessment This is a 78 year old male with past medical history of 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, obesity, hypertension, hyperlipidemia, Hiatal hernia, h/o Esophageal tear, GERD, on coumadin for possibly A fib was landin sferred from [facility] for rectal bleeding. The patient was in his usual state of health on 11/30/18 night . He was sitting watching TV when he suddenly felt an urge for a bowel movement went to the bathroom and had stool mixed with bright red blood. He had 4 more episodes of rectal bleeding at home then went to the [facility] ED in the morning of 12/01/18. There he continued to have several more episodes so was transferred here for further evaluation. Pateint was give one dose of vit K in the other hospital and Dr Manzano from Gi was also contacted from the other hospital. Patient was admitted for Lower GI bleeding. Lower GI blooding Painless bleeding possibly diverticular or AVMs HH dropped from 13 to 9. Now at 10. will monitor HH Hold ASA and coumadin Tranfuse prn. Pantoprazole will keep on liquids. Planned for colonoscopy on 12/03/18 Dr Manzano consulted. CAD/CABG/Stent no issues at present Continue atenolol and statin , will hold ASA and coumadin Hypertension continue atenolol hold HCTZ Hyperlipidemia continue statin Hiatal hernia/GERD on PPI Possible Paroxysmal A fib as patient on coumadin. will hold INR not supratherapeutic. Obesity DVT prophylaxis ordered. Plan/VTE VTE Prophylaxis Ordered?: Yes VS, I&O, 24H, Fishbone Vital Signs/I&O Vital Signs Date Time Temp Pulse Resp B/P (MAP) Pulse Ox O2 Delivery O2 Flow Rate FiO2 12/02/18 16:00 97.7 72 20 98 Room Air 12/02/18 08:00 163/70 (101) I&O- Last 24 Hours up to 6 AM 12/02/18 06:00 Intake Total 705 ml Output Total 475 ml Balance 230 ml Laboratory Data 24H LABS Laboratory Tests 2 12/02/18 00:27: Immature Granulocyte % (Auto) 0.1, White Blood Count 7.0, Red Blood Count 3.45L, Hemoglobin 9.9L, Hematocrit 30.2L, Mean Corpuscular Volume 87.5, Mean Corpuscular Hemoglobin 28.7, Mean Corpuscular Hemoglobin Concent 32.8, Red Cell Distribution Width 14.8H, Platelet Count 221, Neutrophils (%) (Auto) 52.8, Lymphocytes (%) (Auto) 35.4, Monocytes (%) (Auto) 10.0H, Eosinophils (%) (Auto) 1.0, Basophils (%) (Auto) 0.7, Neutrophils # (Auto) 3.7, Lymphocytes # (Auto) 2.5, Monocytes # (Auto) 0.7, Eosinophils # (Auto) 0.1, Basophils # (Auto) 0.1, Nucleated Red Blood Cells % (auto) 0.0 12/02/18 04:26: Immature Granulocyte % (Auto) 0.3, White Blood Count 6.5, Red Blood Count 3.42L, Hemoglobin 9.8L, Hematocrit 30.0L, Mean Corpuscular Volume 87.7, Mean Corpuscular Hemoglobin 28.7, Mean Corpuscular Hemoglobin Concent 32.7, Red Cell Distribution Width 14.8H, Platelet Count 208, Neutrophils (%) (Auto) 52.5, Lymphocytes (%) (Auto) 34.2, Monocytes (%) (Auto) 10.7H, Eosinophils (%) (Auto) 1.5, Basophils (%) (Auto) 0.8, Neutrophils # (Auto) 3.4, Lymphocytes # (Auto) 2.2, Monocytes # (Auto) 0.7, Eosinophils # (Auto) 0.1, Basophils # (Auto) 0.1, Nucleated Red Blood Cells % (auto) 0.0, Prothrombin Time 17.1H, Prothromb Time International Ratio 1.37, Anion Gap 8, Glomerular Filtration Rate > 60.0, Blood Urea Nitrogen 19H, Creatinine 0.94, Sodium Level 141, Potassium Level 3.3L, Chloride Level 106, Carbon Dioxide Level 27, Calcium Level 8.0L CBC/BMP Laboratory Tests 12/02/18 00:27 Red Blood Count 3.45 L, Mean Corpuscular Volume 87.5, Mean Corpuscular Hemoglobin 28.7, Mean Corpuscular Hemoglobin Concent 32.8, Red Cell Distribution Width 14.8 H, Neutrophils (%) (Auto) 52.8, Lymphocytes (%) (Auto) 35.4, Monocytes (%) (Auto) 10.0 H, Eosinophils (%) (Auto) 1.0, Basophils (%) (Auto) 0.7, Neutrophils # (Auto) 3.7, Lymphocytes # (Auto) 2.5, Monocytes # (Auto) 0.7, Eosinophils # (Auto) 0.1, Basophils # (Auto) 0.1 12/02/18 04:26 Red Blood Count 3.42 L, Mean Corpuscular Volume 87.7, Mean Corpuscular Hemoglobin 28.7, Mean Corpuscular Hemoglobin Concent 32.7, Red Cell Distribution Width 14.8 H, Neutrophils (%) (Auto) 52.5, Lymphocytes (%) (Auto) 34.2, Monocytes (%) (Auto) 10.7 H, Eosinophils (%) (Auto) 1.5, Basophils (%) (Auto) 0.8, Neutrophils # (Auto) 3.4, Lymphocytes # (Auto) 2.2, Monocytes # (Auto) 0.7, Eosinophils # (Auto) 0.1, Basophils # (Auto) 0.1, Calcium Level 8.0 L 12/02/18 11:36 JOHN GARCIA MD Dec 02, 2018 17:58
[2018-12-02 18:48] LABS: HEMOGLOBIN 10.9 g/dl (13.5-17.5)
[2018-12-02] MEDS ORDERED: BISACODYL 5 MG TAB PO ONE (19:30)
[2018-12-02 20:00] VITALS: BP 178/72
[2018-12-02 21:30] VITALS: BP 148/76
[2018-12-03 00:35] LABS: HEMATOCRIT 30.6 % (42.0-52.0); HEMOGLOBIN 10.2 g/dl (13.5-17.5)
[2018-12-03 04:00] VITALS: BP 144/68
[2018-12-03 06:07] LABS: BASO % 0.7 % (0.0-1.0); EOS # 0.1 10^3/uL (0.0-0.50); HEMATOCRIT 30.3 % (42.0-52.0); HEMOGLOBIN 10.1 g/dl (13.5-17.5); LYMPH # 1.8 10^3/uL (1.5-4.5); LYMPH % 29.6 % (24.0-44.0); MEAN CORPUSCULAR HGB CONC 33.3 g/dl (32.0-36.5); MEAN CORPUSCULAR VOLUME 87.1 fl (80.0-96.0); MONO # 0.7 10^3/uL (0.0-0.8); MONO % 11.3 % (0.0-5.0); NEUTROPHILS # 3.4 10^3/uL (1.8-7.7); NEUTROPHILS % 56.1 % (36.0-66.0); PLATELET COUNT, AUTOMATED 222 10^3/uL (150-450); RED BLOOD COUNT 3.48 10^6/uL (4.30-6.10); WHITE BLOOD COUNT 6.1 10^3/uL (4.0-10.0)
[2018-12-03 06:30] LABS: BLOOD UREA NITROGEN 13 MG/DL (7-18); CALCIUM LEVEL 8.3 MG/DL (8.8-10.2); CARBON DIOXIDE LEVEL 27 MEQ/L (21-32); CHLORIDE LEVEL 104 MEQ/L (98-107); CREATININE FOR GFR 0.95 MG/DL (0.70-1.30); GLOMERULAR FILTRATION RATE > 60.0 (>42); GLUCOSE, FASTING 100 MG/DL (70-100); POTASSIUM SERUM 3.2 MEQ/L (3.5-5.1); SODIUM LEVEL 139 MEQ/L (136-145)
[2018-12-03] MEDS: ATENOLOL 50 MG TAB PO SCH (07:52)
[2018-12-03 08:00] VITALS: BP 121/62
[2018-12-03] MEDS ORDERED: POTASSIUM CHLORIDE 10 MEQ SR TABLET PO ONE ×2 (09:15→11:30)
[2018-12-03] MEDS: PANTOPRAZOLE 40MG INJ (PROTONIX) (C9113) IV SCH ×2 (13:42→22:22)
[2018-12-03] MEDS ORDERED: MIRALAX *UNIT DOSE* 17GM PACKET PO ONE ×2 (15:15→20:00)
--- NOTE | 2018-12-03 15:34 | IPNPDOC ---
Text Note Date of Service The patient was seen on 12/03/18. NOTE Subjective: Patient denies any further rectal bleeding. No abdominal pain. No nausea or vomiting. Objective: Vitals: (see below) General: No acute distress, laying comfortably in bed. HEENT: Moist mucous membranes. Neck: No JVD or lymphadenopathy Cardiac: RRR, No murmurs Pulm: Clear to auscultation b/l. No wheezing, rhonchi Abd: NT/ND + BS Ext: 1+ edema bilateral lower extremities. No cyanosis. Labs (see below) Images: Assessment/Plan 1. Lower GI bleed- patient has a drop of hemoglobin from 13-10. Has not required PRBC transfusion. Aspirin Coumadin held pending colonoscopy today. Appreciate Dr. Manzano's input. 2.History of CAD status post CABG and PCI. Continue home meds. Hold aspirin for now pending colonoscopy. 3. ? For why the patient is on Coumadin. We'll attempt to contact his primary care physician tomorrow. 4. Hypertension controlled continue atenolol. Hold HCTZ for now. 5. Hyperlipidemia on statin. 6. History of hiatal hernia/GERD on PPI 7. Obesity complicating care DVT prophy: SCDs Colonoscopy today. Will attempt to contact his PCP tomorrow to learn more about why patient is on Coumadin. VS,Roxanne, I+O VS, Roxanne, I+O Laboratory Tests 12/02/18 18:21 12/02/18 23:57 12/03/18 05:38 Red Blood Count 3.48 L, Mean Corpuscular Volume 87.1, Mean Corpuscular Hemoglobin 29.0, Mean Corpuscular Hemoglobin Concent 33.3, Red Cell Distribution Width 14.7 H, Neutrophils (%) (Auto) 56.1, Lymphocytes (%) (Auto) 29.6, Monocytes (%) (Auto) 11.3 H, Eosinophils (%) (Auto) 2.0, Basophils (%) (Auto) 0.7, Neutrophils # (Auto) 3.4, Lymphocytes # (Auto) 1.8, Monocytes # (Auto) 0.7, Eosinophils # (Auto) 0.1, Basophils # (Auto) 0.0, Calcium Level 8.3 L Vital Signs Date Time Temp Pulse Resp B/P (MAP) Pulse Ox O2 Delivery O2 Flow Rate FiO2 12/03/18 08:00 97.3 92 20 121/62 (81) 99 Room Air I&O- Last 24 Hours up to 6 AM 12/03/18 06:00 Intake Total 1680 ml Output Total 700 ml Balance 980 ml FRENCH FUENTES MD Dec 03, 2018 15:34
[2018-12-03 16:00] VITALS: BP 158/71
--- NOTE | 2018-12-03 17:40 | IPNPDOC ---
Date Seen The patient was seen on 12/03/18. Progress Note Interval history: Patient was initially planned for Colonoscopy today and did the bowel prep. BUt due to emergency in the OR the procedure was delayed. ( OR time is approximately around 8 PM). Discussed with the patient regarding this issue and patient agreed to postpone the procedure till tomorrow. Recommendations: -- Give full liquid today. -- Miralax 3 packets to be taken at 6-8PM. -- Will also give one dose of Fleet enema prior to procedure tomorrow morning. -- NPO after 12 midnight for procedure tomorrow. -- No contraindication for aspirin 81 mg. ( so resumed the medication). -- Anticoagulant management as per primary team. Plan of care discussed with patient, primary team and floor nurse. VS, I&O, 24H, Fishbone Laboratory Data CBC/BMP Laboratory Tests 12/02/18 18:21 12/02/18 23:57 12/03/18 05:38 Red Blood Count 3.48 L, Mean Corpuscular Volume 87.1, Mean Corpuscular Hemoglobin 29.0, Mean Corpuscular Hemoglobin Concent 33.3, Red Cell Distribution Width 14.7 H, Neutrophils (%) (Auto) 56.1, Lymphocytes (%) (Auto) 29.6, Monocyte s (%) (Auto) 11.3 H, Eosinophils (%) (Auto) 2.0, Basophils (%) (Auto) 0.7, Neutrophils # (Auto) 3.4, Lymphocytes # (Auto) 1.8, Monocytes # (Auto) 0.7, Eosinophils # (Auto) 0.1, Basophils # (Auto) 0.0, Calcium Level 8.3 L RK MALDONADO MD Dec 03, 2018 17:40
[2018-12-03] MEDS: ASPIRIN 81 MG ENTERIC TAB PO SCH (18:00)
[2018-12-03 20:00] VITALS: BP 118/68
[2018-12-04 04:00] VITALS: BP 154/69
[2018-12-04 05:36] LABS: BASO # 0.1 10^3/uL (0.0-0.2); BASO % 1.1 % (0.0-1.0); EOS # 0.2 10^3/uL (0.0-0.50); EOS % 2.7 % (0.0-3.0); HEMATOCRIT 28.8 % (42.0-52.0); HEMOGLOBIN 9.5 g/dl (13.5-17.5); LYMPH % 36.3 % (24.0-44.0); MEAN CORPUSCULAR HEMOGLOBIN 28.4 pg (27.0-33.0); MEAN CORPUSCULAR VOLUME 86.2 fl (80.0-96.0); MONO # 0.6 10^3/uL (0.0-0.8); MONO % 10.3 % (0.0-5.0); NEUTROPHILS # 2.7 10^3/uL (1.8-7.7); NEUTROPHILS % 49.6 % (36.0-66.0); PLATELET COUNT, AUTOMATED 210 10^3/uL (150-450); RED BLOOD COUNT 3.34 10^6/uL (4.30-6.10); WHITE BLOOD COUNT 5.5 10^3/uL (4.0-10.0)
[2018-12-04 05:43] LABS: BLOOD UREA NITROGEN 9 MG/DL (7-18); CALCIUM LEVEL 8.2 MG/DL (8.8-10.2); CARBON DIOXIDE LEVEL 26 MEQ/L (21-32); CHLORIDE LEVEL 109 MEQ/L (98-107); CREATININE FOR GFR 0.91 MG/DL (0.70-1.30); GLOMERULAR FILTRATION RATE > 60.0 (>42); GLUCOSE, FASTING 90 MG/DL (70-100); POTASSIUM SERUM 3.7 MEQ/L (3.5-5.1); SODIUM LEVEL 141 MEQ/L (136-145)
[2018-12-04] MEDS ORDERED: FLEET ENEMA PR ONE (06:00)
[2018-12-04] MEDS ORDERED: SIMETHICONE 40MG/0.6ML DROPS 30ML As Ordered ONE (06:55)
[2018-12-04] MEDS ORDERED: PROPOFOL 200 MG/20 ML VIAL As Ordered ONE ×3 (07:08→07:42)
--- NOTE | 2018-12-04 08:07 | ROOR ---
Patient Name: Soham Mario Procedure Date: 12/04/2018 7:24 AM Date of : 1940 Age: 78 Room: [facility] Gender: Male Note Status: Finalized Procedure: Colonoscopy Indications: Hematochezia Providers: Stew Manzano MD Referring MD: Cristino Márquez MD Requesting Provider: Medicines: Monitored Anesthesia Care Complications: No immediate complications. Procedure: Pre-Anesthesia Assessment: - Prior to the procedure, a History and Physical was performed, and patient medications and allergies were reviewed. The patient is competent. The risks and benefits of the procedure and the sedation options and risks were discussed with the patient. All questions were answered and informed consent was obtained. Patient identification and proposed procedure were verified by the physician, the nurse and the anesthesiologist in the procedure room. Mental Status Examination: alert and oriented. Airway Examination: normal oropharyngeal airway and neck mobility. Respiratory Examination: clear to auscultation. CV Examination: normal. Prophylactic Antibiotics: The patient does not require prophylactic antibiotics. Prior Anticoagulants: The patient has taken Coumadin (warfarin), last dose was 4 days prior to procedure. ASA Grade Assessment: III - A patient with severe systemic disease. After reviewing the risks and benefits, the patient was deemed in satisfactory condition to undergo the procedure. The anesthesia plan was to use monitored anesthesia care (MAC). Immediately prior to administration of medications, the patient was re-assessed for adequacy to receive sedatives. The heart rate, respiratory rate, oxygen saturations, blood pressure, adequacy of pulmonary ventilation, and response to care were monitored throughout the procedure. The physical status of the patient was re-assessed after the procedure. The Colonoscope was introduced through the anus and advanced to the terminal ileum, with identification of the appendiceal orifice and IC valve. The colonoscopy was performed without difficulty. The patient tolerated the procedure well. The quality of the bowel preparation was adequate to identify polyps 6 mm and larger in size and fair. The terminal ileum, ileocecal valve, appendiceal orifice, and rectum were photographed. Scope insertion time was 5 minutes. Scope withdrawal time was 10 minutes. The total duration of the procedure was 15 minutes. Findings: The perianal and digital rectal examinations were normal. The terminal ileum appeared normal. A 5 mm polyp was found in the descending colon. The polyp was sessile. The polyp was removed with a jumbo cold forceps. Resection and retrieval were complete. Verification of patient identification for the specimen was done by the physician and nurse using the patient's name, date and medical record number. Estimated blood loss was minimal. Multiple small and large-mouthed diverticula were found from sigmoid to transverse colon. There was no evidence of diverticular bleeding. Non-bleeding external and internal hemorrhoids were found during retroflexion. The hemorrhoids were medium-sized. Impression: - Preparation of the colon was fair. - The examined portion of the ileum was normal. - One 5 mm polyp in the descending colon, removed with a jumbo cold forceps. Resected and retrieved. - Moderate diverticulosis from sigmoid to transverse colon. There was no evidence of diverticular bleeding. - Non-bleeding external and internal hemorrhoids. Recommendation: - Patient has a contact number available for emergencies. The signs and symptoms of potential delayed complications were discussed with the patient. Return to normal activities tomorrow. Written discharge instructions were provided to the patient. - High fiber diet. - Continue present medications. - Resume Coumadin (warfarin) at prior dose today depending on the recommendations from primary team and further adjustment of therapy. - Await pathology results. - Repeat colonoscopy in 5 years for surveillance based on pathology results and depending on clinical and functional status. - Telephone GI clinic for pathology results 1 - 2 weeks. Please call GI clinic @ [phone]. - Return to primary care physician. Stew Manzano MD Stew Manzano MD 12/04/2018 8:07:15 AM This report has been signed electronically. Number of Addenda: 0 Note Initiated On: 12/04/2018 7:24 AM Estimated Blood Loss: Estimated blood loss was minimal.
[2018-12-04 08:50] VITALS: BP 168/75
[2018-12-04] MEDS: ATENOLOL 50 MG TAB PO SCH (10:16)
[2018-12-04] MEDS: PANTOPRAZOLE 40MG INJ (PROTONIX) (C9113) IV SCH ×2 (10:17→23:16)
[2018-12-04] MEDS: ASPIRIN 81 MG ENTERIC TAB PO SCH (10:25)
[2018-12-04 12:00] VITALS: BP 126/60
[2018-12-04] MEDS ORDERED: FUROSEMIDE 40 MG/4 ML VIAL (J1940) IV ONE (12:00)
[2018-12-04] MEDS ORDERED: SLF 3 ML SYR IV PRN (13:30)
[2018-12-04] MEDS: SLF 3 ML SYR IV SCH ×2 (13:38→21:11)
[2018-12-04 16:00] VITALS: BP 147/70
--- NOTE | 2018-12-04 16:45 | IPNPDOC ---
Text Note Date of Service The patient was seen on 12/04/18. NOTE Subjective: No bleeding No abdominal pain. No nausea or vomiting. No CP. Objective: Vitals: (see below) General: No acute distress, laying comfortably in bed. HEENT: Moist mucous membranes. Neck: No JVD or lymphadenopathy Cardiac: RRR, No murmurs Pulm: Clear to auscultation b/l. No wheezing, rhonchi Abd: NT/ND + BS Ext: 1+ edema bilateral lower extremities. No cyanosis. Labs (see below) Colonoscopy on 12/04/18 Impression: - Preparation of the colon was fair. - The examined portion of the ileum was normal. - One 5 mm polyp in the descending colon, removed with a jumbo cold forceps. Resected and retrieved. - Moderate diverticulosis from sigmoid to transverse colon. There was no evidence of diverticular bleeding. - Non-bleeding external and internal hemorrhoids. Assessment/Plan 1. Lower GI bleed- patient has a drop of hemoglobin from 13-10. Has not required PRBC transfusion. Colonoscopy (see above). Appreciate Dr. Manzano's input. Pt will need to follow-up outpatient with pathology results of polyp resection. 2.History of CAD status post CABG and PCI. Continue home meds. Per Dr. Gaona - d/c ASA as pt is already on coumadin. 3. H/o PE/ Protein S def - Discussed with Dr. Gaona 12/04 - recommends d/c asa and continuing coumadin. Pt states INR is being monitored by his PCP, and would like to continue doing so. 4. Hypertension controlled continue atenolol. Hold HCTZ for now. 5. Hyperlipidemia on statin. 6. History of hiatal hernia/GERD on PPI 7. Obesity complicating care 8. LE edema- lasix PRN. DVT prophy: SCDs Plan to discharge in the next 24-48 hours if no bleeding occurs as Coumadin is being started. VS,Fishbone, I+O VS, Fishbone, I+O Laboratory Tests 12/04/18 04:27 Red Blood Count 3.34 L, Mean Corpuscular Volume 86.2, Mean Corpuscular Hemoglobin 28.4, Mean Corpuscular Hemoglobin Concent 33.0, Red Cell Distribution Width 15.0 H, Neutrophils (%) (Auto) 49.6, Lymphocytes (%) (Auto) 36.3, Monocytes (%) (Auto) 10.3 H, Eosinophils (%) (Auto) 2.7, Basophils (%) (Auto) 1.1 H, Neutrophils # (Auto) 2.7, Lymphocytes # (Auto) 2.0, Monocytes # (Auto) 0.6, Eosinophils # (Auto) 0.2, Basophils # (Auto) 0.1, Calcium Level 8.2 L Vital Signs Date Time Temp Pulse Resp B/P (MAP) Pulse Ox O2 Delivery O2 Flow Rate FiO2 12/04/18 12:00 97.4 70 18 126/60 (82) 97 Room Air I&O- Last 24 Hours up to 6 AM 12/04/18 06:00 Intake Total 840 ml Output Total 375 ml Balance 465 ml FRENCH FUENTES MD Dec 04, 2018 16:45
[2018-12-04] MEDS: WARFARIN SOD 5 MG TAB PO SCH (17:26)
[2018-12-04 20:00] VITALS: BP 140/74
[2018-12-05 04:00] VITALS: BP 141/64
[2018-12-05] MEDS: SLF 3 ML SYR IV SCH ×4 (04:43→22:02)
[2018-12-05 05:46] LABS: BASO % 0.7 % (0.0-1.0); EOS # 0.2 10^3/uL (0.0-0.50); EOS % 2.6 % (0.0-3.0); HEMATOCRIT 29.9 % (42.0-52.0); HEMOGLOBIN 9.8 g/dl (13.5-17.5); LYMPH # 1.9 10^3/uL (1.5-4.5); LYMPH % 32.6 % (24.0-44.0); MEAN CORPUSCULAR HEMOGLOBIN 29.3 pg (27.0-33.0); MEAN CORPUSCULAR HGB CONC 32.8 g/dl (32.0-36.5); MEAN CORPUSCULAR VOLUME 89.3 fl (80.0-96.0); MONO # 0.6 10^3/uL (0.0-0.8); MONO % 9.4 % (0.0-5.0); NEUTROPHILS # 3.2 10^3/uL (1.8-7.7); NEUTROPHILS % 54.4 % (36.0-66.0); PLATELET COUNT, AUTOMATED 214 10^3/uL (150-450); RED BLOOD COUNT 3.35 10^6/uL (4.30-6.10); WHITE BLOOD COUNT 5.8 10^3/uL (4.0-10.0)
[2018-12-05 05:55] LABS: INR 1.09; PROTHROMBIN TIME 14.2 SECONDS (12.1-14.4)
[2018-12-05 06:00] LABS: BLOOD UREA NITROGEN 11 MG/DL (7-18); CALCIUM LEVEL 7.8 MG/DL (8.8-10.2); CARBON DIOXIDE LEVEL 27 MEQ/L (21-32); CHLORIDE LEVEL 110 MEQ/L (98-107); CREATININE FOR GFR 1.02 MG/DL (0.70-1.30); GLOMERULAR FILTRATION RATE > 60.0 (>42); GLUCOSE, FASTING 104 MG/DL (70-100); POTASSIUM SERUM 3.5 MEQ/L (3.5-5.1); SODIUM LEVEL 144 MEQ/L (136-145)
[2018-12-05 08:00] VITALS: BP 154/74
[2018-12-05] MEDS ORDERED: POTASSIUM CHLORIDE 10 MEQ SR TABLET PO ONE (08:00)
[2018-12-05] MEDS ORDERED: HEPARIN SOD (PORCINE) 5000 UNITS/ML VIAL IV PRN (08:00)
[2018-12-05] MEDS ORDERED: ENOXAPARIN 100MG/1ML SYRINGE (J1650) SC SCH (08:00)
--- NOTE | 2018-12-05 08:49 | IPNPDOC ---
Date Seen The patient was seen on 12/05/18. Progress Note Subjective: Seen and exmained this morning at bedside. States he is doing well but is sad that he can't go home yet. He states he does not like to sit and do nothing. He denies any more bleeding. Denies abdominal pain/ nausea/ vomiting. He ambulating to the bathroom with no problem and had a bowl movement after his colonscopy as well. He has no complaint this AM. Objective: Vitals: (see below) General: No acute distress, laying comfortably in bed. HEENT: Moist mucous membranes. Neck: No JVD or lymphadenopathy Cardiac: RRR, No murmurs Pulm: Clear to auscultation b/l. No wheezing, rhonchi Abd: NT/ND + BS, obese abdomen., Ext: trace edema bilateral lower extremities. No cyanosis. Labs (see below) Colonoscopy on 12/04/18 Impression: Ileum was normal. One 5 mm polyp in the descending colon, removed .Moderate diverticulosis from sigmoid to transverse colon. There was no evidence of diverticular bleeding. Non-bleeding external and internal hemorrhoids. Assessment/Plan 1. Acute blood loss Anemia- lower GI bleed via rectum Hemoglobin in [facility]2017- and on admission in 12/02/18 was 10. -H/H stable since admission -Has not required PRBC transfusion. -Colonoscopy - negative for any sign of overt bleed -Follow-up outpatient with pathology results of polyp resection. 2.History of CAD status post CABG and PCI. -Continue home meds. -Per Dr. Gaona - d/c ASA as pt is already on coumadin. 3. 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 Gaona 12/04 - recommends d/c asa and continuing coumadin. -Pt states INR is being monitored by his PCP, and would like to continue doing so. -INR levels 2.0-3.0. -Currently subtherapeutic continue with heparin drip 4. Hypertension -c/w atenolol. -restart home HCTZ today 5. Hyperlipidemia -c/w statin. 6. History of hiatal hernia/GERD -c/w PPI will transtion from IV Protonix to Home PO Omprazole. 7. Obesity -BMI: 31.9 -complicates care 8. LE edema -Lasix PRN. DVT prophy: SCDs Disposition: Plan to discharge in the next 24-48 hours if no bleeding occurs as Coumadin is being started. VS, I&O, 24H, Fishbone Vital Signs/I&O Vital Signs Date Time Temp Pulse Resp B/P (MAP) Pulse Ox O2 Delivery O2 Flow Rate FiO2 12/05/18 08:00 97.2 63 19 154/74 (100) 97 Room Air I&O- Last 24 Hours up to 6 AM 12/05/18 06:00 Intake Total 480 ml Output Total 1500 ml Balance -1020 ml Laboratory Data 24H LABS Laboratory Tests 2 12/05/18 04:53: Immature Granulocyte % (Auto) 0.3, White Blood Count 5.8, Red Blood Count 3.35L, Hemoglobin 9.8L, Hematocrit 29.9L, Mean Corpuscular Volume 89.3, Mean Corpuscular Hemoglobin 29.3, Mean Corpuscular Hemoglobin Concent 32.8, Red Cell Distribution Width 15.2H, Platelet Count 214, Neutrophils (%) (Auto) 54.4, Lymphocytes (%) (Auto) 32.6, Monocytes (%) (Auto) 9.4H, Eosinophils (%) (Auto) 2.6, Basophils (%) (Auto) 0.7, Neutrophils # (Auto) 3.2, Lymphocytes # (Auto) 1.9, Monocytes # (Auto) 0.6, Eosinophils # (Auto) 0.2, Basophils # (Auto) 0.0, Nucleated Red Blood Cells % (auto) 0.0, Prothrombin Time 14.2, Prothromb Time International Ratio 1.09, Anion Gap 7L, Glomerular Filtration Rate > 60.0, Blood Urea Nitrogen 11, Creatinine 1.02, Sodium Level 144, Potassium Level 3.5, Chloride Level 110H, Carbon Dioxide Level 27, Calcium Level 7.8L 12/05/18 08:11: CBC/BMP Laboratory Tests 12/05/18 04:53 Red Blood Count 3.35 L, Mean Corpuscular Volume 89.3, Mean Corpuscular Hemoglobin 29.3, Mean Corpuscular Hemoglobin Concent 32.8, Red Cell Distribution Width 15.2 H, Neutrophils (%) (Auto) 54.4, Lymphocytes (%) (Auto) 32.6, Monocytes (%) (Auto) 9.4 H, Eosinophils (%) (Auto) 2.6, Basophils (%) (Auto) 0.7, Neutrophils # (Auto) 3.2, Lymphocytes # (Auto) 1.9, Monocytes # (Auto) 0.6, Eosinophils # (Auto) 0.2, Basophils # (Auto) 0.0, Calcium Level 7.8 L GME ATTESTATION GME ATTESTATION My faculty preceptor for this patient encounter was physically present during the encounter and was fully available. All aspects of the patient interview, examination, medical decision making process, and medical care plan development were reviewed and approved by the faculty preceptor. The faculty preceptor is aware and concurs with the plan as stated in the body of this note and will attest to such by his/her cosignature. ANDRZEJ JIANG DO Dec 05, 2018 08:49
[2018-12-05] MEDS: HEPARIN DRIP 25,000 UNITS in APPROPRIATE DILUENT 1 EA IV SCH ×2 (08:57→22:01)
[2018-12-05] MEDS: ATENOLOL 50 MG TAB PO SCH (08:58)
[2018-12-05] MEDS: OMEPRAZOLE 20 MG CAP PO SCH (09:12)
[2018-12-05] MEDS: hydroCHLOROthiazide 25 MG TAB PO SCH (09:13)
[2018-12-05 12:00] VITALS: BP 133/72
[2018-12-05 14:45] VITALS: BP 167/77
[2018-12-05] MEDS: WARFARIN SOD 5 MG TAB PO SCH (17:12)
[2018-12-05] MEDS: ATORVASTATIN 20 MG TAB PO SCH (19:56)
[2018-12-05 22:00] VITALS: BP 142/68
[2018-12-06 04:51] LABS: BASO # 0.1 10^3/uL (0.0-0.2); BASO % 0.9 % (0.0-1.0); EOS # 0.2 10^3/uL (0.0-0.50); EOS % 2.9 % (0.0-3.0); HEMOGLOBIN 10.6 g/dl (13.5-17.5); LYMPH # 2.1 10^3/uL (1.5-4.5); LYMPH % 30.4 % (24.0-44.0); MEAN CORPUSCULAR HEMOGLOBIN 29.4 pg (27.0-33.0); MEAN CORPUSCULAR HGB CONC 33.1 g/dl (32.0-36.5); MEAN CORPUSCULAR VOLUME 88.6 fl (80.0-96.0); MONO # 0.5 10^3/uL (0.0-0.8); MONO % 7.3 % (0.0-5.0); NEUTROPHILS # 4.1 10^3/uL (1.8-7.7); NEUTROPHILS % 58.4 % (36.0-66.0); PLATELET COUNT, AUTOMATED 259 10^3/uL (150-450); RED BLOOD COUNT 3.61 10^6/uL (4.30-6.10)
[2018-12-06 05:03] LABS: INR 1.11; PROTHROMBIN TIME 14.4 SECONDS (12.1-14.4)
[2018-12-06 05:05] LABS: PARTIAL THROMBOPLASTIN TIME 92.3 SECONDS (25.4-37.6)
[2018-12-06 05:12] LABS: BLOOD UREA NITROGEN 12 MG/DL (7-18); CALCIUM LEVEL 8.1 MG/DL (8.8-10.2); CARBON DIOXIDE LEVEL 26 MEQ/L (21-32); CHLORIDE LEVEL 106 MEQ/L (98-107); CREATININE FOR GFR 1.05 MG/DL (0.70-1.30); GLOMERULAR FILTRATION RATE > 60.0 (>42); GLUCOSE, FASTING 109 MG/DL (70-100); POTASSIUM SERUM 3.4 MEQ/L (3.5-5.1); SODIUM LEVEL 139 MEQ/L (136-145)
[2018-12-06 06:00] VITALS: BP 127/59
[2018-12-06] MEDS ORDERED: ENOX120I3 SC (08:24)
[2018-12-06] MEDS: OMEPRAZOLE 20 MG CAP PO SCH (09:14)
[2018-12-06] MEDS: hydroCHLOROthiazide 25 MG TAB PO SCH (09:14)
[2018-12-06] MEDS: ATENOLOL 50 MG TAB PO SCH (09:14)
[2018-12-06] MEDS ORDERED: FUROSEMIDE 40 MG/4 ML VIAL (J1940) IV ONE (11:30)
[2018-12-06] MEDS: ENOXAPARIN 100MG/1ML SYRINGE (J1650) SC SCH ×2 (11:41→23:49)
[2018-12-06] MEDS: SLF 3 ML SYR IV SCH ×2 (13:42→20:32)
[2018-12-06 14:00] VITALS: BP 123/67
--- NOTE | 2018-12-06 16:32 | IPNPDOC ---
Date Seen The patient was seen on 12/06/18. Progress Note Subjective: Seen and examined this morning in his bed. There was the consideration of potential discharge today but the patient is not the most reliable for giving himself levonox shot while he is being bridged for his warfarin. The patient would like to stay here in the hospital while he is being bridged with the lovenox instead. He has no complaint. He is in good spirit this morning. Denies chest pain, SOB, nausea, vomiting diarrhea. He is ambulating the halls with his heparin drip with no problem. Objective: Vitals: (see below) General: No acute distress, sitting up in his chair HEENT: Moist mucous membranes. Neck: No JVD or lymphadenopathy Cardiac: RRR, No murmurs Pulm: Clear to auscultation b/l. No wheezing, rhonchi Abd: NT/ND + BS, obese abdomen., Ext: trace edema bilateral lower extremities. No cyanosis. Labs (see below) Colonoscopy on 12/04/18 Impression: Ileum was normal. One 5 mm polyp in the descending colon, removed .Moderate diverticulosis from sigmoid to transverse colon. There was no evidence of diverticular bleeding. Non-bleeding external and internal hemorrhoids. Assessment/Plan 1. Acute blood loss Anemia- lower GI bleed via rectum Hemoglobin in and on admission in 12/02/18 was 10. -H/H stable since admission -Has not required PRBC transfusion. -Colonoscopy - negative for any sign of overt bleed -Follow-up outpatient with pathology results of polyp resection. 2.History of CAD status post CABG and PCI. -Continue home meds. -Per Dr. Gaona - d/c ASA as pt is already on coumadin. 3. 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 Gaona 12/04 - recommends d/c asa and continuing coumadin. -Pt states INR is being monitored by his PCP, and would like to continue doing so. -INR levels 2.0-3.0. -Currently subtherapeutic continue with heparin drip. -D.C heparine drip start Lovenox therapeutic dose continue to monitor for bleeds. -7.5mgx1 warfarin today and recheck INR in the AM. 4. Hypertension -c/w atenolol. -restart home HCTZ today 5. Hyperlipidemia -c/w statin. 6. History of hiatal hernia/GERD -c/w PPI will transtion from IV Protonix to Home PO Omprazole. 7. Obesity -BMI: 31.9 -complicates care 8. LE edema -Lasix PRN. DVT prophy: SCDs Disposition: Plan to discharge in the next 24-48 hours if no bleeding occurs as Coumadin is being started. VS, I&O, 24H, Fishbone Vital Signs/I&O Vital Signs Date Time Temp Pulse Resp B/P (MAP) Pulse Ox O2 Delivery O2 Flow Rate FiO2 12/06/18 14:00 97.7 63 19 123/67 (85) 96 Room Air I&O- Last 24 Hours up to 6 AM 12/06/18 06:00 Intake Total 1699 ml Output Total 650 ml Balance 1049 ml Laboratory Data 24H LABS Laboratory Tests 2 12/05/18 21:41: Activated Partial Thromboplast Time 109.4H 12/06/18 04:41: Activated Partial Thromboplast Time 92.3H, Immature Granulocyte % (Auto) 0.1, White Blood Count 7.0, Red Blood Count 3.61L, Hemoglobin 10.6L, Hematocrit 32.0L, Mean Corpuscular Volume 88.6, Mean Corpuscular Hemoglobin 29.4, Mean Corpuscular Hemoglobin Concent 33.1, Red Cell Distribution Width 15.4H, Platelet Count 259, Neutrophils (%) (Auto) 58.4, Lymphocytes (%) (Auto) 30.4, Monocytes (%) (Auto) 7.3H, Eosinophils (%) (Auto) 2.9, Basophils (%) (Auto) 0.9, Neutrophils # (Auto) 4.1, Lymphocytes # (Auto) 2.1, Monocytes # (Auto) 0.5, Eosinophils # (Auto) 0.2, Basophils # (Auto) 0.1, Nucleated Red Blood Cells % (auto) 0.0, Prothrombin Time 14.4, Prothromb Time International Ratio 1.11, Anion Gap 7L, Glomerular Filtration Rate > 60.0, Blood Urea Nitrogen 12, Creatinine 1.05, Sodium Level 139, Potassium Level 3.4L, Chloride Level 106, Carbon Dioxide Level 26, Calcium Level 8.1L 12/06/18 10:39: Activated Partial Thromboplast Time 75.3H CBC/BMP Laboratory Tests 12/06/18 04:41 Red Blood Count 3.61 L, Mean Corpuscular Volume 88.6, Mean Corpuscular Hemoglobin 29.4, Mean Corpuscular Hemoglobin Concent 33.1, Red Cell Distribution Width 15.4 H, Neutrophils (%) (Auto) 58.4, Lymphocytes (%) (Auto) 30.4, Monocytes (%) (Auto) 7.3 H, Eosinophils (%) (Auto) 2.9, Basophils (%) (Auto) 0.9, Neutrophils # (Auto) 4.1, Lymphocytes # (Auto) 2.1, Monocytes # (Auto) 0.5, Eosinophils # (Auto) 0.2, Basophils # (Auto) 0.1, Calcium Level 8.1 L GME ATTESTATION GME ATTESTATION My faculty preceptor for this patient encounter was physically present during the encounter and was fully available. All aspects of the patient interview, examination, medical decision making process, and medical care plan development were reviewed and approved by the faculty preceptor. The faculty preceptor is aware and concurs with the plan as stated in the body of this note and will attest to such by his/her cosignature. ANDRZEJ JIANG DO Dec 06, 2018 16:32
[2018-12-06] MEDS ORDERED: WARFARIN SOD 2.5 MG TAB PO ONE (17:00)
[2018-12-06] MEDS: WARFARIN SOD 5 MG TAB PO SCH (17:12)
[2018-12-06] MEDS: ATORVASTATIN 20 MG TAB PO SCH (20:30)
[2018-12-06] MEDS ORDERED: ACETAMINOPHEN TAB 650MG DOSE (2X325MG) PO ONE (20:30)
[2018-12-06 22:00] VITALS: BP 143/67
[2018-12-07] MEDS: SLF 3 ML SYR IV SCH ×3 (05:42→20:09)
[2018-12-07 06:00] VITALS: BP 131/60
[2018-12-07 06:06] LABS: BASO # 0.1 10^3/uL (0.0-0.2); BASO % 1.1 % (0.0-1.0); EOS # 0.2 10^3/uL (0.0-0.50); HEMOGLOBIN 9.7 g/dl (13.5-17.5); LYMPH # 2.1 10^3/uL (1.5-4.5); LYMPH % 38.4 % (24.0-44.0); MEAN CORPUSCULAR HGB CONC 33.4 g/dl (32.0-36.5); MEAN CORPUSCULAR VOLUME 86.6 fl (80.0-96.0); MONO # 0.5 10^3/uL (0.0-0.8); MONO % 8.6 % (0.0-5.0); NEUTROPHILS # 2.6 10^3/uL (1.8-7.7); NEUTROPHILS % 47.7 % (36.0-66.0); PLATELET COUNT, AUTOMATED 231 10^3/uL (150-450); RED BLOOD COUNT 3.35 10^6/uL (4.30-6.10); WHITE BLOOD COUNT 5.5 10^3/uL (4.0-10.0)
[2018-12-07 06:21] LABS: BLOOD UREA NITROGEN 14 MG/DL (7-18); CALCIUM LEVEL 8.3 MG/DL (8.8-10.2); CARBON DIOXIDE LEVEL 30 MEQ/L (21-32); CHLORIDE LEVEL 103 MEQ/L (98-107); CREATININE FOR GFR 1.07 MG/DL (0.70-1.30); GLOMERULAR FILTRATION RATE > 60.0 (>42); GLUCOSE, FASTING 99 MG/DL (70-100); INR 1.13; POTASSIUM SERUM 3.3 MEQ/L (3.5-5.1); PROTHROMBIN TIME 14.7 SECONDS (12.1-14.4); SODIUM LEVEL 140 MEQ/L (136-145)
--- NOTE | 2018-12-07 07:08 | IPNPDOC ---
Date Seen The patient was seen on 12/07/18. Progress Note Subjective: Seen and examined this morning in his bed. He has no complaint. He is in good spirit this morning. Denies chest pain, SOB, nausea, vomiting diarrhea. He is ambulating the halls with no problem. His INR this morning was 1.13. Objective: Vitals: (see below) General: No acute distress, sitting up in his chair HEENT: Moist mucous membranes. Neck: No JVD or lymphadenopathy Cardiac: RRR, No murmurs Pulm: Clear to auscultation b/l. No wheezing, rhonchi Abd: NT/ND + BS, obese abdomen., Ext: 2+ pitting edema bilaterally up to mid calf Colonoscopy on 12/04/18 Impression: Ileum was normal. One 5 mm polyp in the descending colon, removed .Moderate diverticulosis from sigmoid to transverse colon. There was no evidence of diverticular bleeding. Non-bleeding external and internal hemorrhoids. Assessment/Plan 1. Acute blood loss Anemia- lower GI bleed via rectum Hemoglobin in [facility] [address] and on admission in 12/02/18 was 10. -H/H stable since admission -Has not required PRBC transfusion. -Colonoscopy - negative for any sign of overt bleed -Follow-up outpatient with pathology results of polyp resection. 2.History of CAD status post CABG and PCI. -Continue home meds. -Per Dr. Gaona - d/c ASA as pt is already on coumadin. 3. 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 Gaona 12/04 - recommends d/c asa and continuing coumadin. -Pt states INR is being monitored by his PCP, and would like to continue doing so. -INR levels 2.0-3.0. -Currently subtherapeutic -D.C heparine drip start Lovenox therapeutic dose continue to monitor for bleeds. - 10mgx1 warfarin today and recheck INR in the AM. 4. Hypertension -c/w atenolol and HCTZ 5. Hyperlipidemia -c/w statin. 6. History of hiatal hernia/GERD -c/w Home PO Omprazole. 7. Obesity -BMI: 31.9 -complicates care 8. LE edema -Lasix 20 mg by mouth daily currently for he has significant edema. will see if we can transistion to PRN once edema improve. -We'll monitor BUN and creatinine levels while on it -Encouraged leg elevation above heart especially when laying -Because the Lasix as scheduled we will supplement with potassium chloride 40 mEq daily DVT prophy: SCDs Disposition: pending therapeutic INR levels. VS, I&O, 24H, Fishbone Vital Signs/I&O Vital Signs Date Time Temp Pulse Resp B/P (MAP) Pulse Ox O2 Delivery O2 Flow Rate FiO2 12/06/18 22:00 97.8 65 20 143/67 (92) 93 Room Air I&O- Last 24 Hours up to 6 AM 12/07/18 06:00 Intake Total 720 ml Output Total 151 ml Balance 569 ml Laboratory Data 24H LABS Laboratory Tests 2 12/06/18 10:39: Activated Partial Thromboplast Time 75.3H 12/07/18 05:33: Immature Granulocyte % (Auto) 0.2, White Blood Count 5.5, Red Blood Count 3.35L, Hemoglobin 9.7L, Hematocrit 29.0L, Mean Corpuscular Volume 86.6, Mean Corpuscular Hemoglobin 29.0, Mean Corpuscular Hemoglobin Concent 33.4, Red Cell Distribution Width 15.4H, Platelet Count 231, Neutrophils (%) (Auto) 47.7, Lymphocytes (%) (Auto) 38.4, Monocytes (%) (Auto) 8.6H, Eosinophils (%) (Auto) 4.0H, Basophils (%) (Auto) 1.1H, Neutrophils # (Auto) 2.6, Lymphocytes # (Auto) 2.1, Monocytes # (Auto) 0.5, Eosinophils # (Auto) 0.2, Basophils # (Auto) 0.1, Nucleated Red Blood Cells % (auto) 0.0, Prothrombin Time 14.7H, Prothromb Time International Ratio 1.13, Anion Gap 7L, Glomerular Filtration Rate > 60.0, Blood Urea Nitrogen 14, Creatinine 1.07, Sodium Level 140, Potassium Level 3.3L, Chloride Level 103, Carbon Dioxide Level 30, Calcium Level 8.3L CBC/BMP Laboratory Tests 12/07/18 05:33 Red Blood Count 3.35 L, Mean Corpuscular Volume 86.6, Mean Corpuscular Hemoglobin 29.0, Mean Corpuscular Hemoglobin Concent 33.4, Red Cell Distribution Width 15.4 H, Neutrophils (%) (Auto) 47.7, Lymphocytes (%) (Auto) 38.4, Monocytes (%) (Auto) 8.6 H, Eosinophils (%) (Auto) 4.0 H, Basophils (%) (Auto) 1.1 H, Neutrophils # (Auto) 2.6, Lymphocytes # (Auto) 2.1, Monocytes # (Auto) 0.5, Eosinophils # (Auto) 0.2, Basophils # (Auto) 0.1, Calcium Level 8.3 L GME ATTESTATION GME ATTESTATION My faculty preceptor for this patient encounter was physically present during the encounter and was fully available. All aspects of the patient interview, examination, medical decision making process, and medical care plan development were reviewed and approved by the faculty preceptor. The faculty preceptor is aware and concurs with the plan as stated in the body of this note and will attest to such by his/her cosignature. ANDRZEJ JIANG DO Dec 07, 2018 07:08
[2018-12-07] MEDS ORDERED: POTASSIUM CHLORIDE 10 MEQ SR TABLET PO ONE (08:45)
[2018-12-07] MEDS: OMEPRAZOLE 20 MG CAP PO SCH (09:10)
[2018-12-07] MEDS: hydroCHLOROthiazide 25 MG TAB PO SCH (09:10)
[2018-12-07] MEDS: ATENOLOL 50 MG TAB PO SCH (09:11)
[2018-12-07] MEDS: ENOXAPARIN 100MG/1ML SYRINGE (J1650) SC SCH (11:32)
[2018-12-07] MEDS: FUROSEMIDE 20 MG TAB PO SCH (11:34)
[2018-12-07 14:00] VITALS: BP_SYST 116; BP_SYST 180; BP_DIAS 60; BP_DIAS 94
[2018-12-07] MEDS: WARFARIN SOD 5 MG TAB PO SCH (16:17)
[2018-12-07] MEDS ORDERED: WARFARIN SOD 5 MG TAB PO ONE (17:00)
[2018-12-07] MEDS ORDERED: ACETAMINOPHEN TAB 650MG DOSE (2X325MG) PO ONE (19:30)
[2018-12-07] MEDS: ATORVASTATIN 20 MG TAB PO SCH (20:09)
[2018-12-07 22:00] VITALS: BP 132/63
[2018-12-08] MEDS: ENOXAPARIN 100MG/1ML SYRINGE (J1650) SC SCH ×2 (00:17→13:13)
[2018-12-08] MEDS: SLF 3 ML SYR IV SCH ×3 (05:42→20:55)
[2018-12-08 06:00] VITALS: BP 148/70
[2018-12-08 06:08] LABS: BASO # 0.1 10^3/uL (0.0-0.2); EOS # 0.2 10^3/uL (0.0-0.50); EOS % 2.6 % (0.0-3.0); HEMATOCRIT 33.4 % (42.0-52.0); HEMOGLOBIN 10.9 g/dl (13.5-17.5); LYMPH # 1.9 10^3/uL (1.5-4.5); LYMPH % 32.1 % (24.0-44.0); MEAN CORPUSCULAR HEMOGLOBIN 28.8 pg (27.0-33.0); MEAN CORPUSCULAR HGB CONC 32.6 g/dl (32.0-36.5); MEAN CORPUSCULAR VOLUME 88.1 fl (80.0-96.0); MONO # 0.5 10^3/uL (0.0-0.8); NEUTROPHILS # 3.3 10^3/uL (1.8-7.7); NEUTROPHILS % 55.8 % (36.0-66.0); PLATELET COUNT, AUTOMATED 261 10^3/uL (150-450); RED BLOOD COUNT 3.79 10^6/uL (4.30-6.10); WHITE BLOOD COUNT 5.9 10^3/uL (4.0-10.0)
[2018-12-08 06:28] LABS: BLOOD UREA NITROGEN 13 MG/DL (7-18); CALCIUM LEVEL 8.3 MG/DL (8.8-10.2); CARBON DIOXIDE LEVEL 28 MEQ/L (21-32); CHLORIDE LEVEL 102 MEQ/L (98-107); CREATININE FOR GFR 1.03 MG/DL (0.70-1.30); GLOMERULAR FILTRATION RATE > 60.0 (>42); GLUCOSE, FASTING 100 MG/DL (70-100); INR 1.25; POTASSIUM SERUM 3.6 MEQ/L (3.5-5.1); PROTHROMBIN TIME 15.9 SECONDS (12.1-14.4); SODIUM LEVEL 138 MEQ/L (136-145)
[2018-12-08] MEDS ORDERED: ACETAMINOPHEN TAB 650MG DOSE (2X325MG) PO PRN (07:45)
[2018-12-08] MEDS: OMEPRAZOLE 20 MG CAP PO SCH (09:43)
[2018-12-08] MEDS: ATENOLOL 50 MG TAB PO SCH (09:44)
[2018-12-08] MEDS: FUROSEMIDE 20 MG TAB PO SCH (09:45)
[2018-12-08] MEDS: POTASSIUM CHLORIDE 10 MEQ SR TABLET PO SCH (09:45)
--- NOTE | 2018-12-08 11:08 | IPNPDOC ---
Date Seen The patient was seen on 12/08/18. Progress Note Subjective: Seen and examined this morning in his bed. He has no complaint. He is in good spirit this morning. Denies chest pain, SOB, nausea, vomiting diarrhea. He is ambulating the halls with no problem. His INR this morning was 1.25. Patient will like a bar again for he would like the telemetry off and request that he can ambulate to the other floors such as the waiting area for he is very bored sitting in his room. The patient has no other complaints today. He denies any chest pain shortness of breath trouble breathing any leg swelling, leg pain nausea vomiting diarrhea. Objective: Vitals: (see below) General: No acute distress, sitting up in his chair HEENT: Moist mucous membranes. Neck: No JVD or lymphadenopathy Cardiac: RRR, No murmurs Pulm: Clear to auscultation b/l. No wheezing, rhonchi Abd: NT/ND + BS, obese abdomen. Ext: 1+ pitting edema bilaterally left worse than right. No calf tenderness. Colonoscopy on 12/04/18 Impression: Ileum was normal. One 5 mm polyp in the descending colon, removed .Moderate diverticulosis from sigmoid to transverse colon. There was no evidence of diverticular bleeding. Non-bleeding external and internal hemorrhoids. Assessment/Plan 1. Acute blood loss Anemia- lower GI bleed via rectum -Hemoglobin in [facility] 2017- and on admission in 12/02/18 was 10. -H/H stable since admission -Has not required PRBC transfusion. -Colonoscopy - negative for any sign of overt bleed -Follow-up outpatient with pathology results of polyp resection. 2.History of CAD status post CABG and PCI. -Continue home meds. -Per Dr. Gaona - d/c ASA as pt is already on coumadin. 3. 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 Gaona 12/04 - recommends d/c asa and continuing coumadin. -Pt states INR is being monitored by his PCP, and would like to continue doing so. -INR levels 2.0-3.0. -Currently subtherapeutic -D.C heparine drip start Lovenox therapeutic dose continue to monitor for bleeds. -15mgx1 warfarin today and recheck INR in the AM. 4. Hypertension -c/w atenolol and HCTZ 5. Hyperlipidemia -c/w statin. 6. History of hiatal hernia/GERD -c/w Home PO Omprazole. 7. Obesity -BMI: 31.9 -complicates care 8. LE edema -Lasix 20 mg by mouth daily currently for he has significant edema. will see if we can transistion to PRN once edema improve. -We'll monitor BUN and creatinine levels while on it -Encouraged leg elevation above heart especially when laying -Because the Lasix as scheduled we will supplement with potassium chloride 40 m Eq daily DVT prophy: SCDs Disposition: pending therapeutic INR levels. Discontinue telemetry VS, I&O, 24H, Fishbone Vital Signs/I&O Vital Signs Date Time Temp Pulse Resp B/P (MAP) Pulse Ox O2 Delivery O2 Flow Rate FiO2 12/07/18 22:00 97.9 60 20 132/63 (86) 96 Room Air I&O- Last 24 Hours up to 6 AM 12/08/18 06:00 Intake Total 832 ml Output Total 901 ml Balance -69 ml Laboratory Data 24H LABS Laboratory Tests 2 12/08/18 05:41: Immature Granulocyte % (Auto) 0.5, White Blood Count 5.9, Red Blood Count 3.79L, Hemoglobin 10.9L, Hematocrit 33.4L, Mean Corpuscular Volume 88.1, Mean Corpuscular Hemoglobin 28.8, Mean Corpuscular Hemoglobin Concent 32.6, Red Cell Distribution Width 15.3H, Platelet Count 261, Neutrophils (%) (Auto) 55.8, Ly mphocytes (%) (Auto) 32.1, Monocytes (%) (Auto) 8.0H, Eosinophils (%) (Auto) 2.6, Basophils (%) (Auto) 1.0, Neutrophils # (Auto) 3.3, Lymphocytes # (Auto) 1.9, Monocytes # (Auto) 0.5, Eosinophils # (Auto) 0.2, Basophils # (Auto) 0.1, Nucleated Red Blood Cells % (auto) 0.0, Prothrombin Time 15.9H, Prothromb Time International Ratio 1.25, Anion Gap 8, Glomerular Filtration Rate > 60.0, Blood Urea Nitrogen 13, Creatinine 1.03, Sodium Level 138, Potassium Level 3.6, Chloride Level 102, Carbon Dioxide Level 28, Calcium Level 8.3L CBC/BMP Laboratory Tests 12/08/18 05:41 Red Blood Count 3.79 L, Mean Corpuscular Volume 88.1, Mean Corpuscular Hemoglobin 28.8, Mean Corpuscular Hemoglobin Concent 32.6, Red Cell Distribution Width 15.3 H, Neutrophils (%) (Auto) 55.8, Lymphocytes (%) (Auto) 32.1, Monocytes (%) (Auto) 8.0 H, Eosinophils (%) (Auto) 2.6, Basophils (%) (Auto) 1.0, Neutrophils # (Auto) 3.3, Lymphocytes # (Auto) 1.9, Monocytes # (Auto) 0.5, Eosinophils # (Auto) 0.2, Basophils # (Auto) 0.1, Calcium Level 8.3 L GME ATTESTATION GME ATTESTATION My faculty preceptor for this patient encounter was physically present during the encounter and was fully available. All aspects of the patient interview, examination, medical decision making process, and medical care plan development were reviewed and approved by the faculty preceptor. The faculty preceptor is aware and concurs with the plan as stated in the body of this note and will attest to such by his/her cosignature. ANDRZEJ JIANG DO Dec 08, 2018 07:23
[2018-12-08 14:00] VITALS: BP 132/65
[2018-12-08] MEDS: WARFARIN SOD 5 MG TAB PO SCH (16:57)
[2018-12-08] MEDS ORDERED: WARFARIN SOD 5 MG TAB PO ONE (17:00)
[2018-12-08 20:00] VITALS: BP 133/67
[2018-12-08] MEDS: ATORVASTATIN 20 MG TAB PO SCH (20:55)
[2018-12-09] MEDS: ENOXAPARIN 100MG/1ML SYRINGE (J1650) SC SCH ×2 (00:11→12:52)
[2018-12-09] MEDS: SLF 3 ML SYR IV SCH ×4 (00:15→20:58)
[2018-12-09 06:00] VITALS: BP 119/54
[2018-12-09 06:20] LABS: INR 1.68; PROTHROMBIN TIME 20.1 SECONDS (12.1-14.4)
[2018-12-09] MEDS: POTASSIUM CHLORIDE 10 MEQ SR TABLET PO SCH (08:08)
[2018-12-09] MEDS: OMEPRAZOLE 20 MG CAP PO SCH (08:08)
[2018-12-09] MEDS: FUROSEMIDE 20 MG TAB PO SCH (08:08)
[2018-12-09] MEDS: ATENOLOL 50 MG TAB PO SCH (08:09)
--- NOTE | 2018-12-09 08:17 | IPNPDOC ---
Date Seen The patient was seen on 12/09/18. Progress Note Subjective: Seen and examined this morning in his bed. He has no complaint. He is in good spirit this morning. Denies chest pain, SOB, nausea, vomiting diarrhea. He is ambulating the halls with no problem. His INR this morning was 1.68. Objective: Vitals: (see below) General: No acute distress, sitting up in his chair HEENT: Moist mucous membranes. Neck: No JVD or lymphadenopathy Cardiac: RRR, No murmurs Pulm: Clear to auscultation b/l. No wheezing, rhonchi Abd: NT/ND + BS, obese abdomen. Ext: 1+ pitting edema bilaterally around ankle left worse than right. No calf tenderness. Colonoscopy on 12/04/18 Impression: Ileum was normal. One 5 mm polyp in the descending colon, removed .Moderate diverticulosis from sigmoid to transverse colon. There was no evidence of diverticular bleeding. Non-bleeding external and internal hemorrhoids. Assessment/Plan 1. Acute blood loss Anemia- lower GI bleed via rectum -Hemoglobin in [facility] 2017- and on admission in 12/02/18 was 10. -H/H stable since admission -Has not required PRBC transfusion. -Colonoscopy - negative for any sign of overt bleed -Follow-up outpatient with pathology results of polyp resection. 2.History of CAD status post CABG and PCI. -Continue home meds. -Per Dr. Gaona - d/c ASA as pt is already on coumadin. 3. 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 Gaona 12/04 - recommends d/c asa and continuing coumadin. -Pt states INR is being monitored by his PCP, and would like to continue doing so. -INR levels 2.0-3.0. -Currently subtherapeutic -D.C heparine drip start Lovenox therapeutic dose continue to monitor for bleeds. -15mgx1 warfarin today and recheck INR in the AM. 4. Hypertension -c/w atenolol and HCTZ 5. Hyperlipidemia -c/w statin. 6. History of hiatal hernia/GERD -c/w Home PO Omprazole. 7. Obesity -BMI: 31.9 -complicates care 8. LE edema -Lasix 20 mg by mouth daily currently for he has significant edema. will see if we can transistion to PRN once edema improve. -We'll monitor BUN and creatinine levels while on it -Encouraged leg elevation above heart especially when laying -Because the Lasix as scheduled we will supplement with potassium chloride 40 mEq daily DVT prophy: SCDs Disposition: pending therapeutic INR levels. Possible discharge in 24-48 hours. VS, I&O, 24H, Fishbone Vital Signs/I&O Vital Signs Date Time Temp Pulse Resp B/P (MAP) Pulse Ox O2 Delivery O2 Flow Rate FiO2 12/09/18 08:09 62 119/54 12/09/18 06:00 98.1 18 97 Room Air I&O- Last 24 Hours up to 6 AM 12/09/18 06:00 Intake Total 1100 ml Output Total 550 ml Balance 550 ml Laboratory Data 24H LABS Laboratory Tests 2 12/09/18 05:42: Prothrombin Time 20.1H, Prothromb Time International Ratio 1.68 GME ATTESTATION GME ATTESTATION My faculty preceptor for this patient encounter was physically present during the encounter and was fully available. All aspects of the patient interview, examination, medical decision making process, and medical care plan development were reviewed and approved by the faculty preceptor. The faculty preceptor is aware and concurs with the plan as stated in the body of this note and will attest to such by his/her cosignature. ANDRZEJ JIANG DO Dec 09, 2018 08:17
[2018-12-09 08:42] LABS: HEMATOCRIT 30.8 % (42.0-52.0); MEAN CORPUSCULAR HEMOGLOBIN 29.1 pg (27.0-33.0); MEAN CORPUSCULAR HGB CONC 32.5 g/dl (32.0-36.5); MEAN CORPUSCULAR VOLUME 89.5 fl (80.0-96.0); PLATELET COUNT, AUTOMATED 243 10^3/uL (150-450); RED BLOOD COUNT 3.44 10^6/uL (4.30-6.10)
[2018-12-09 13:02] LABS: BLOOD UREA NITROGEN 16 MG/DL (7-18); CARBON DIOXIDE LEVEL 28 MEQ/L (21-32); CHLORIDE LEVEL 105 MEQ/L (98-107); CREATININE FOR GFR 0.99 MG/DL (0.70-1.30); GLOMERULAR FILTRATION RATE > 60.0 (>42); GLUCOSE, FASTING 97 MG/DL (70-100); POTASSIUM SERUM 3.8 MEQ/L (3.5-5.1); SODIUM LEVEL 139 MEQ/L (136-145)
[2018-12-09] MEDS: WARFARIN SOD 5 MG TAB PO SCH (16:58)
[2018-12-09] MEDS ORDERED: WARFARIN SOD 5 MG TAB PO ONE (17:00)
[2018-12-09] MEDS: ATORVASTATIN 20 MG TAB PO SCH (20:58)
[2018-12-09 22:00] VITALS: BP 137/65
[2018-12-10] MEDS: ENOXAPARIN 100MG/1ML SYRINGE (J1650) SC SCH (01:33)
[2018-12-10] MEDS: SLF 3 ML SYR IV SCH ×2 (05:19→10:36)
[2018-12-10 06:00] VITALS: BP 146/77
[2018-12-10 06:24] LABS: HEMATOCRIT 31.9 % (42.0-52.0); HEMOGLOBIN 10.4 g/dl (13.5-17.5); MEAN CORPUSCULAR HEMOGLOBIN 28.9 pg (27.0-33.0); MEAN CORPUSCULAR HGB CONC 32.6 g/dl (32.0-36.5); MEAN CORPUSCULAR VOLUME 88.6 fl (80.0-96.0); PLATELET COUNT, AUTOMATED 247 10^3/uL (150-450); WHITE BLOOD COUNT 4.9 10^3/uL (4.0-10.0)
[2018-12-10 06:33] LABS: INR 2.57; PROTHROMBIN TIME 28.1 SECONDS (12.1-14.4)
[2018-12-10 06:46] LABS: BLOOD UREA NITROGEN 18 MG/DL (7-18); CALCIUM LEVEL 8.1 MG/DL (8.8-10.2); CARBON DIOXIDE LEVEL 26 MEQ/L (21-32); CHLORIDE LEVEL 106 MEQ/L (98-107); CREATININE FOR GFR 0.97 MG/DL (0.70-1.30); GLOMERULAR FILTRATION RATE > 60.0 (>42); GLUCOSE, FASTING 99 MG/DL (70-100); POTASSIUM SERUM 3.6 MEQ/L (3.5-5.1); SODIUM LEVEL 139 MEQ/L (136-145)
[2018-12-10 08:23] VITALS: BP 146/77
[2018-12-10] MEDS: POTASSIUM CHLORIDE 10 MEQ SR TABLET PO SCH (08:23)
[2018-12-10] MEDS: ATENOLOL 50 MG TAB PO SCH (08:23)
[2018-12-10] MEDS: FUROSEMIDE 20 MG TAB PO SCH (08:23)
[2018-12-10] MEDS: OMEPRAZOLE 20 MG CAP PO SCH (08:24)
[2018-12-10] MEDS ORDERED: FURO20TA2 PO (10:25)
[2018-12-10] MEDS ORDERED: KLOR10TA76 PO (11:03)
--- NOTE | 2018-12-10 14:14 | DS.PDOC ---
Discharge Summary General Date of Admission Dec 01, 2018 at 10:14 Date of Discharge 12/10/18 Primary Care Physician: DEANA KNOTT MD Attending Physician: FRENCH FUENTES MD Discharge Summary PROCEDURES PERFORMED DURING STAY: Colonoscopy PCP Dr Cristino Márquez ADMITTING/DISCHARGE DIAGNOSES: 1. Acute lower GI bleed secondary to diverticulosis, resolved. 2. History of pulmonary embolism and protein S deficiency on Coumadin 3. History of CAD status post CABG and PCI 4. History of hypertension 5. History of hyperlipidemia 6.obesity complicating care COMPLICATIONS/CHIEF COMPLAINT: Bright red blood per rectum HISTORY OF PRESENT ILLNESS/HOSPITAL COURSE: This is a 78-year-old male has a history of pulmonary embolus as well as protein S deficiency on Coumadin, CAD status post PCI and CABG who also been on aspirin who presents complaining of bright red blood per rectum. Patient did have a drop in his hemoglobin however his hemoglobin remained stable and did not require any blood transfusion. Dr. Logan has performed a colonoscopy (see below). Diverticulosis as the likely cause. Patient has been instructed to incorporate a high-fiber diet. Over the course of hospitalization, patient was restarted on his Coumadin, and after speaking with Dr. Gaona on 12/04, aspirin was discontinued given the increased risk of bleeding. Dr. Gaona also advised. The patient also has a protein S deficiency, given his high risk of thrombosis, the patient was bridged to Coumadin with enoxaparin. He was unable to give himself the Lovenox shots at home for which she did needed to stay in the hospital until his INR was therapeutic. Today's INR is 2.57. He will be discharged home today with outpatient follow-up with his PCP tomorrow to have INR checked, and to follow-up closely with his primary care physician for further management of his Coumadin dosage. Patient is advised to return to the ED if bleeding recurs. DISCHARGE MEDICATIONS: Please see below. ALLERGIES: Please see below. PHYSICAL EXAMINATION ON DISCHARGE: Vitals: (see below) General: No acute distress, laying comfortably in bed. HEENT: Moist mucous membranes. Neck: No JVD or lymphadenopathy Cardiac: RRR, No murmurs Pulm: Clear to auscultation b/l. No wheezing, rhonchi Abd: NT/ND + BS Ext: No edema or cyanosis LABORATORY DATA: Please see below. Colonoscopy on 12/04/18 Impression: - Preparation of the colon was fair. - The examined portion of the ileum was normal. - One 5 mm polyp in the descending colon, removed with a jumbo cold forceps. Resected and retrieved. - Moderate diverticulosis from sigmoid to transverse colon. There was no evidence of diverticular bleeding. - Non-bleeding external and internal hemorrhoids. PROGNOSIS: Fair ACTIVITY: As tolerated. DIET: Low-sodium diet, however per diet DISCHARGE PLAN/DISPOSITION: Home DISCHARGE INSTRUCTIONS: 1. Return to the ED symptoms worsen. Follow-up with PCP in 1-2 days, as well as have an INR checked tomorrow with the PCP. DISCHARGE CONDITION: Stable. TIME SPENT ON DISCHARGE: Greater than 30 minutes. Vital Signs/I&Os Vital Signs Date Time Temp Pulse Resp B/P (MAP) Pulse Ox O2 Delivery O2 Flow Rate FiO2 12/10/18 08:23 71 146/77 12/10/18 06:00 98.3 20 95 12/09/18 06:00 Room Air I&O- Last 24 Hours up to 6 AM 12/10/18 06:00 Intake Total 2430 ml Output Total 950 ml Balance 1480 ml Laboratory Data Labs 24H Laboratory Tests 2 12/10/18 05:31: Nucleated Red Blood Cells % (auto) 0.0, Prothrombin Time 28.1H, Prothromb Time International Ratio 2.57, Anion Gap 7L, Glomerular Filtration Rate > 60.0, Blood Urea Nitrogen 18, Creatinine 0.97, Sodium Level 139, Potassium Level 3.6, Chloride Level 106, Carbon Dioxide Level 26, Calcium Level 8.1L CBC/BMP Laboratory Tests 12/10/18 05:31 Red Blood Count 3.60 L, Mean Corpuscular Volume 88.6, Mean Corpuscular Hemoglobin 28.9, Mean Corpuscular Hemoglobin Concent 32.6, Red Cell Distribution Width 15.1 H, Calcium Level 8.1 L Discharge Medications Scheduled Atenolol (Atenolol) 50 Mg Tab, 50 MG PO DAILY, (Reported) Atorvastatin Calcium (Atorvastatin Calcium) 40 Mg Tab, 40 MG PO QHS, (Reported) Furosemide (Furosemide) 20 Mg Tab, 20 MG PO DAILY Omeprazole (Omeprazole) 20 Mg Cap, 20 MG PO DAILY, (Reported) Potassium Chloride (Klor-Con M10) 10 Meq Tabcr, 20 MEQ PO DAILY Warfarin Sod (Warfarin Sodium) 5 Mg Tab, 5 MG PO DAILY, (Reported) Scheduled PRN Acetaminophen (Tylenol Extra Strength) 500 Mg Tab, 1,000 MG PO QHS PRN for PAIN / FEVER, (Reported) Allergies Coded Allergies: No Known Allergies (Verified , 11/11/17) FRENCH FUENTES MD Dec 10, 2018 14:14
== END 2018-12-10 13:17 | disposition home or self-care (01) | DRG 378 ==
LOC: M PCU 10:14 → M MSPAV 12-05 14:38
PROVIDERS: ADMIT Family Medicine; ATTEND Internal Medicine
PROC: 0DBM8ZX Excision of Descending Colon, Via Natural or Artificial Opening Endoscopic, Diagnostic (ICD-10-PCS; principal; 2018-12-04 07:00)
DX: K57.91 Diverticulosis of intestine, part unspecified, without perforation or abscess with bleeding (principal); D62 Acute posthemorrhagic anemia; D68.59 Other primary thrombophilia; I10 Essential (primary) hypertension; E78.5 Hyperlipidemia, unspecified; E66.9 Obesity, unspecified; I25.10 Atherosclerotic heart disease of native coronary artery without angina pectoris; Z95.1 Presence of aortocoronary bypass graft; Z79.01 Long term (current) use of anticoagulants; Z86.711 Personal history of pulmonary embolism; Z79.899 Other long term (current) drug therapy; K44.9 Diaphragmatic hernia without obstruction or gangrene; Z79.82 Long term (current) use of aspirin; K21.9 Gastro-esophageal reflux disease without esophagitis; Z95.2 Presence of prosthetic heart valve; Z87.891 Personal history of nicotine dependence; Z68.32 Body mass index [BMI] 32.0-32.9, adult; D12.4 Benign neoplasm of descending colon; K64.4 Residual hemorrhoidal skin tags; K64.8 Other hemorrhoids

== ENCOUNTER → 2019-10-17 | Outpatient (CLI) | payer MEDICARE ==
[~2019-10-17] MED LIST changes: +ASPI81TA26 PO; +ATOR40TA75 PO; +ENOX120I3 SC; +FURO20TA2 PO; +KLOR10TA76 PO; -OMEP20CA3 PO; +OMEP20CA4 PO; -OMEP40CA2 PO; +OMEP40CA97 PO; +POTA1TAB21 PO
--- NOTE | 2019-10-17 14:12 | REP ---
Right lower extremity Duplex Doppler venous ultrasound: Real time compression and duplex Doppler interrogation of the right lower extremity deep venous system is performed. The right common femoral, superficial femoral and popliteal veins are fully compressible with transducer pressure and demonstrate normal spontaneous and phasic flow, without evidence of deep venous thrombosis. Impression: No evidence of deep venous thrombosis of the right lower extremity femoral popliteal venous system. Electronically Signed by Jimbo Bauer MD 10/17/2019 02:04 P
== END ==
LOC: M RAD 13:28
PROVIDERS: ATTEND Orthopaedic Surgery
DX: M25.471 Effusion, right ankle (principal)

== ENCOUNTER → 2021-02-02 | Outpatient (CLI) | payer MEDICARE ==
[~2021-02-02] MED LIST changes: +HYDR-3490 PO; -HYDR25TAB PO; +OMEP1CAP73 PO; -OMEP20CA4 PO
--- NOTE | 2021-02-02 16:58 | REPVR ---
PROCEDURE INFORMATION: Exam: MR Lumbar Spine Without Contrast Exam date and time: 02/02/2021 12:00 PM Age: 80 years old Clinical indication: Low back pain; Additional info: Other intervertebral disc degeneration, lumbosacral region TECHNIQUE: Imaging protocol: Multiplanar magnetic resonance images of the lumbar spine without intravenous contrast. COMPARISON: No relevant prior studies available. FINDINGS: Vertebrae: Unremarkable. Spinal cord: Normal signal. No cord compression. L1-L2: Disc bulge. Bilateral facet hypertrophy. No spinal canal stenosis. No neural foraminal narrowing. L2-L3: Disc bulge. Bilateral facet and ligamentum flavum hypertrophy. Prominent epidural fat. Severe spinal canal stenosis. Moderate bilateral neural foraminal narrowing. L3-L4: Disc bulge. Bilateral facet and ligamentum flavum hypertrophy. No spinal canal stenosis. Moderate bilateral neural foraminal narrowing. L4-L5: Disc bulge. Bilateral facet and ligamentum flavum hypertrophy. No spinal canal stenosis. Moderate bilateral neural foraminal narrowing. L5-S1: Disc bulge. No spinal canal stenosis. Severe bilateral neural foraminal narrowing. Soft tissues: Unremarkable. IMPRESSION: No acute abnormality. Multilevel degenerative disc disease with neural foraminal narrowing. Moderate bilateral neural foraminal narrowing at L2-L3, L3-L4, L4-L5 and severe bilateral L5-S1. Severe spinal canal stenosis at L2-L3. Electronically signed by: Mark Kim On 02/02/2021 16:58:46 PM
== END ==
LOC: M RAD 10:42
PROVIDERS: ATTEND Physician Assistant
DX: M51.37 Other intervertebral disc degeneration, lumbosacral region (principal); M48.061 Spinal stenosis, lumbar region without neurogenic claudication; M48.07 Spinal stenosis, lumbosacral region

== ENCOUNTER 2025-09-24 12:08 | Emergency (ER) | payer MEDICARE ==
[~2025-09-24] VITALS: Ht 177.8 cm; Wt 108.0 kg
[~2025-09-24 12:08] MED LIST changes: -KLOR10TA76 PO; +OMEP40CA4 PO; -OMEP40CA97 PO; +POTA-136 PO
[2025-09-24 12:10] VITALS: TEMP 97.4
[2025-09-24] MEDS ORDERED: SPIR-10 PO (12:25)
[2025-09-24] MEDS: ACETAMINOPHEN *IV* 1,000 MG in IV 1 EA IV ONE (14:58)
[2025-09-24 14:59] LABS: BASO # 0.1 10^3/uL (0.0-0.2); BASO % 0.5 % (0.0-1.0); EOS # 0.1 10^3/uL (0.0-0.5); EOS % 0.7 % (0.0-3.0); LYMPH # 2.9 10^3/uL (1.5-5.0); LYMPH % 30.4 % (24.0-44.0); MONO # 0.7 10^3/uL (0.0-0.8); MONO % 7.3 % (2.0-8.0); NEUTROPHILS # 5.9 10^3/uL (1.5-8.5); NEUTROPHILS % 60.9 % (36.0-66.0); PLATELET COUNT, AUTOMATED 252 10^3/uL (150-450)
[2025-09-24 15:25] LABS: ALT/SGPT 16.0 U/L (7.0-40); AST/SGOT 19.0 U/L (<34); CALCIUM LEVEL 9.0 MG/DL (8.3-10.6); CARBON DIOXIDE LEVEL 27.0 MMOL/L (20-31); CHLORIDE LEVEL 102.0 MMOL/L (98-107); CREATININE FOR GFR 1.05 MG/DL (0.70-1.30); GLOMERULAR FILTRATION RATE 70.0 (>35); POTASSIUM SERUM 4.3 MMOL/L (3.5-5.1); SODIUM LEVEL 138.0 MMOL/L (136-145)
[2025-09-24] MEDS ORDERED: ISOVUE-370 76% 100 ML VIAL As Ordered ONE (15:25)
[2025-09-24 17:00] LABS: KETONE, URINE AUTO RFX NEGATIVE (NEGATIVE); LEUKOCYTE ESTERASE UR AUTO RFX NEGATIVE (NEGATIVE); MUCUS, URINE RFX SMALL (NEGATIVE); NITRITE, URINE AUTO RFX NEGATIVE (NEGATIVE); RBC, URINE AUTO RFX 1 /HPF (0-3); SQUAM EPITHELIAL CELL UR AURFX 0 /HPF (0-6); WBC, URINE AUTO RFX 1 /HPF (0-3)
[2025-09-24 17:15] VITALS: O2SAT 96
[2025-09-24 17:17] VITALS: BP 184/83
[2025-09-24] MEDS ORDERED: PRED10TA2 PO (17:37)
[2025-09-24] MEDS: predniSONE 20 MG TAB PO ONE (17:42)
== END 2025-09-24 17:51 | disposition home or self-care (01) ==
LOC: M ED 12:08
DX: M54.50 Low back pain, unspecified (principal); M25.552 Pain in left hip; R00.1 Bradycardia, unspecified; K74.60 Unspecified cirrhosis of liver; Z79.1 Long term (current) use of non-steroidal anti-inflammatories (NSAID); Z79.899 Other long term (current) drug therapy; Z79.02 Long term (current) use of antithrombotics/antiplatelets; Z79.52 Long term (current) use of systemic steroids
CPT/HCPCS: 74177; 80047; 80048; 80076; 81001; 83605; 83690; 85025; 93005; 93041; 96374; 99284; J0134; J7512; Q9967